=== PATIENT | male | born 1945 | race Caucasian/White ===

== ENCOUNTER → 2017-04-01 | Outpatient (CLI) | payer BC ==
[~2017-04-01] MED LIST: BAYER PO; SIMV40TA2 PO
[2017-04-01 09:53] LABS: ALT/SGPT 24 U/L (12-78); AST/SGOT 14 U/L (15-37); BLOOD UREA NITROGEN 18 mg/dl (7-18); BUN/CREATININE RATIO 16.3 (10-20); CALCIUM 8.8 mg/dl (8.5-10.1); CARBON DIOXIDE 29 mmol/L (21-32); CHLORIDE 109 mmol/L (98-107); CHOLESTEROL 172 mg/dl (0-200); GLUCOSE 111 mg/dl (70-99); POTASSIUM 4.6 mmol/L (3.5-5.1); SODIUM 144 mmol/L (136-145); TRIGLYCERIDES 180 mg/dl (0-150); VERY LOW DENSITY LIPOPROT CALC 36 mg/dl
[2017-04-01 09:55] LABS: CHOLESTEROL/HDL RATIO 3.9; HDL CHOLESTEROL 44 mg/dl; LDL CHOLESTEROL CALCULATED 92 mg/dl
[2017-04-01 11:01] LABS: ESTIMATED AVERAGE GLUCOSE 131 mg/dl; HA1C FLAG Normal (Normal)
== END | disposition home or self-care (01) ==
LOC: C.LAB1850 07:41
PROVIDERS: ATTEND Internal Medicine
DX: E78.5 Hyperlipidemia, unspecified (principal); R73.9 Hyperglycemia, unspecified; R97.20 Elevated prostate specific antigen [PSA]

== ENCOUNTER → 2017-10-19 | Outpatient (CLI) | payer BC ==
[2017-10-19 10:30] LABS: ESTIMATED AVERAGE GLUCOSE 134 mg/dl; HA1C FLAG Normal (Normal)
[2017-10-19 10:39] LABS: ALT/SGPT 23 U/L (12-78); AST/SGOT 14 U/L (15-37); BLOOD UREA NITROGEN 22 mg/dl (7-18); CALCIUM 8.9 mg/dl (8.5-10.1); CARBON DIOXIDE 26 mmol/L (21-32); CHLORIDE 108 mmol/L (98-107); CREATININE 1.11 mg/dl (0.60-1.40); GLUCOSE 111 mg/dl (70-99); POTASSIUM 4.3 mmol/L (3.5-5.1); SODIUM 138 mmol/L (136-145)
[2017-10-19 10:44] LABS: CHOLESTEROL 164 mg/dl (0-200); CHOLESTEROL/HDL RATIO 3.8; HDL CHOLESTEROL 43 mg/dl; LDL CHOLESTEROL CALCULATED 86 mg/dl; TRIGLYCERIDES 177 mg/dl (0-150); VERY LOW DENSITY LIPOPROT CALC 35 mg/dl
== END | disposition home or self-care (01) ==
LOC: C.LAB1850 07:12
PROVIDERS: ATTEND Urology
DX: R73.9 Hyperglycemia, unspecified (principal); N40.0 Benign prostatic hyperplasia without lower urinary tract symptoms; R97.20 Elevated prostate specific antigen [PSA]; E78.5 Hyperlipidemia, unspecified

== ENCOUNTER 2025-02-05 11:26 | Observation (INO) ==
--- OUTSIDE RECORDS SUMMARY | 2025-02-05 11:30 | External Medical Summary ---
Author Name Unknown Address Unknown Organization [id number]:[facility] [place] - [address] [facility] [address] Laboratory Report Ordering Provider Test Date Status MARK JAIMES 01/27/2025 13:05:00 Final Observation Date Value Abnormality Reference (Units ) Status WBC, Total 01/27/2025 13:05:00 4.95 4.00-10.80 (K/uL) Final RBC 01/27/2025 13:05:00 2.61 4.50-5.25 (M/uL) Final Hemoglobin 01/27/2025 13:05:00 8.0 Below low normal 14.0-16.8 (g/dL) Final HCT 01/27/2025 13:05:00 25.7 Below low normal 40.0-48.4 (%) Final MCV 01/27/2025 13:05:00 98.5 82.0-99.5 (fL) Final MCH 01/27/2025 13:05:00 30.7 27.0-34.0 (pg) Final MCHC 01/27/2025 13:05:00 31.1 32.0-36.0 (g/dL) Final RDW 01/27/2025 13:05:00 17.4 11.5-15.5 (%) Final Platelets 01/27/2025 13:05:00 232 140-400 (K/uL) Final MPV 01/27/2025 13:05:00 9.7 6.6-11.1 (fL) Final Nucleated erythrocytes/100 leukocytes [Ratio] in Blood by Automated count 01/27/2025 13:05:00 0 <=0 (/100 WBCs) Final Performing Location [facility] [place] - [address] [place] [address]
--- OUTSIDE RECORDS SUMMARY | 2025-02-05 11:30 | External Medical Summary | Summary of Care ---
Author Name Unknown Organization [facility] Address [address] [place] [place] [place] [address] Phone [phone] Care Team Providers Care Charging Car Operator Name Role Phone Trever Cho MD Primary Care Provider +1- [phone] Encounter Details Date Type Department Care Team (Late st Contact Info) Description 01/21/2025 Result Scan Unspecified Department Cooper Trevizo MD [address] [place] [phone] <No scans attached> Allergies No known active allergiesdocumented as of this encounter (statuses as of 01/24/2025) Medications Xgeva 120 MG/1.7ML Subcutaneous Solution (Denosumab) Start: 01/15/21 8:59:00 EST 1 Active Celecoxib 200 MG Oral Capsule (CeleBREX) TAKE 1 CAPSULE BY MOUTH EVERY DAY NEEDED FOR PAIN 0 Active amLODIPine Besylate 5 MG Oral Tablet (Norvasc) Take 1 Tablet by mouth in the morning. Active Aspirin 325 MG Oral Tablet Take 1 Tablet by mouth in the morning. Active Levothyroxine Sodium 25 MCG Oral Tablet (Levoxyl) Take 1 Tablet by mouth daily first thing in the morning. (at least 30 min prior to breakfast or other meds) Active oxyCODONE HCl 5 MG Oral Tablet (Oxy IR)Indications:Pr ostate cancer metastatic to bone (HCC),Cancer related pain Take 1 Tablet by mouth every 6 hours as needed for Pain, Severe. 50 Tablet 05/25/202 3 Active Additional Information Patient not taking.Reported on 06/16/2024 Megestrol Acetate 40 MG/ML Oral Suspension (Megace)Indicatio ns:Prostate cancer metastatic to bone (HCC),Weight loss, unintentional Take 10 mL by mouth in the morning. 480 mL 1 4 Active Erleada 60 MG Oral Tablet (Apalutamide)Olga cations:Encounter for medication refill,Prostate cancer metastatic to bone (HCC) TAKE 4 TABLETS BY MOUTH EVERY DAY 120 Tablet 6 5 Active Docusate Sodium 100 MG Oral Capsule (Colace) Take 1 Capsule by mouth in the morning and 1 Capsule before bedtime. Active Tamsulosin HCl 0.4 MG Oral Capsule (Flomax) Take 1 Capsule by mouth in the morning. Active Ascorbic Acid 500 MG Oral Tablet Chewable Take 1,500 mg by mouth in the morning. Active Vitamin D3 50 MCG (2000 UT) Oral Tablet Take 1 Tablet by mouth in the morning. Active Cyanocobalamin 1000 MCG Oral Capsule Take 1 Capsule by mouth in the morning. Active Pravastatin Sodium 20 MG Oral Tablet (Pravachol) Take 1 Tablet by mouth every evening. Active Vitamin B-1 100 MG Oral Tablet Take 1 Tablet by mouth in the morning. Active Vitamin E 400 UNIT Oral Tablet Take 1 Tablet by mouth in the morning. Active documented as of this encounter (statuses as of 01/24/2025) Active Problems Problem Noted Date Diagnosed Date Encounter for medication refill 09/06/2021 Prostate cancer metastatic to bone 09/17/2020 OBSTRUCTIVE CHRONIC BRONCHIT IS WITHOUT MENTION OF ACUTE EXACERBATION Hemorrhoids documented as of this encounter (statuses as of 01/24/2025) Immunizations Name Administration Dates Next Due COVID-19 mRNA, LNP-s, No Pre serve, 2-Dose Series (Moderna) 01/17/2021,12/21/2020 Seasonal Influenza, High Dos e, Trivalent, PF, IM (Fluzone HD) 11/03/2024,08/07/2022 Seasonal Influenza, Quadrivalent Hd (Fluzone Hd) 08/13/2021 documented as of this encounter Social History Tobacco Use Types Packs/Day Years Used Date Smoking Tobacco: Former Cigarettes Q uit: 11/16/1999 Smokeless Tobacco: Former Chew Alcohol Use Standard Drinks/Week Comments Yes 0 (1 standard drink = 0.6 oz pur e alcohol) 2 drinks/week Sex and Gender Information Value Date Recorded Sex Assigned at Not on file Legal Sex Male 7:13 AM EST Gender Identity Not on file Sexual Orientation Not on file documented as of this encounter Plan of Treatment Upcoming Encounters Date Type Department Care Team (Late st Contact Info) Description 01/27/2025 12:30 PM EDT Office Visit Hematology/Oncology [facility] [address] [facility] [place] [address] Cooper Trevizo MD [address] [facility] [place] [address] 02/16/2025 8:00 AM EDT Office Visit Hematology/Oncology [facility] [place] [address] [facility] [place] [address] Savita Watt CRNP [address] [facility] [place] [id number] Health Maintenance Due Date Last Done Comments Depression Screening 1957 Alpha-1 Antitrypsin 1962 DTap/Tdap Vaccines (1 - Tdap) 1963 *COPD SEVERITY VERIFIED BY PFT 09/01/2020 COVID-19 Vaccine (3 - Moderna risk series) 02/14/2021 01/17/2021, 12/21/2020 TSH 01/12/2026 01/12/2025, 04/0 12/2023, 03/17/2023, Additional history exists O2 ASSESSMENT COMPLETED IN PAST YEAR FOR COPD 01/19/2026 01/19/2025 Pneumococcal Vaccine: 50+ Years Completed 09/21/2015, 10/23/2011 Zoster Vaccines Completed 02/28/2019, 12/23/2018 Influenza Vaccine (FLU shot) Completed , 08/07/2022, 08/13/2021, Additional history exists HPV (Gardasil) Vaccine Aged Out No lo nger eligible based on patient's age to complete this topic Hepatitis B Vaccine Aged Out No longe r eligible based on patient's age to complete this topic MENINGOCOCCAL (MENACTRA/MENVEO) Aged Out No longer eligible based on patient's age to complete this topic Meningitis B Vaccine (Bexsero/Trumemba) Aged Out No longer eligible based on patient's age to complete this topic documented as of this encounter Medical Devices Not on filedocumented as of this encounter Procedures Procedure Name Priority Date/Time Associated Diagnosis Comments OUTSIDE LAB RESULTS 01/23/2025 OUTSIDE LAB RESULTS 01/21/2025 documented in this encounter Results * OUTSIDE LAB RESULTS (01/23/2025) 01/23/2025 us Cooper Trevizo MD LABORATORY Final Result * OUTSIDE LAB RESULTS (01/21/2025) 01/21/2025 us Cooper Trevizo MD LABORATORY Final Result documented in this encounter Care Teams Charging Car Operator Relationship Specialty Start Date End Date Pro, Trever Singletary MD [address] [place] [address] PCP - General Internal Medicine 12/17/20 documented as of this encounter
--- OUTSIDE RECORDS SUMMARY | 2025-02-05 11:30 | External Medical Summary | Summary of Care ---
Author Name Unknown Organization [facility] Address [address] [facility] [place] [address] Phone [phone] Care Team Providers Care Save All Operator Name Role Phone Trever Cho MD Primary Care Provider +1- [phone] Reason for Visit * Reason Comments Procedure BMBX Encounter Details Date Type Department Care Team (Late st Contact Info) Description 01/27/2025 12:30 PM EDT Office Visit Hematology/Oncology [facility] [place] [address] [facility] [place] [phone] Cooper Trevizo MD [address] [facility] [place] [address] Prostate cancer metastatic to bone (HCC)*; Symptomatic anemia Allergies No known active allergiesdocumented as of this encounter (statuses as of 01/28/2025) Medications Xgeva 120 MG/1.7ML Subcutaneous Solution (Denosumab) [...] as needed for Pain, Severe. 50 Tablet 3 Active Additional Information Patient not taking.Reported on 01/27/2025 Megestrol Acetate 40 MG/ML Oral Suspension (Megace)Indicatio [...] as of this encounter (statuses as of 01/28/2025) Active Problems Problem Noted Date Diagnosed Date Encounter for medication refill 09/06/2021 Prostate cancer metastatic to bone 09/17/2020 OBSTRUCTIVE CHRONIC BRONCHIT IS WITHOUT MENTION OF ACUTE EXACERBATION Hemorrhoids documented as of this encounter (statuses as of 01/28/2025) Immunizations Name Administration Dates Next Due COVID-19 [...] on file documented as of this encounter Last Filed Vital Signs Vital Sign Reading Time Taken Comments Blood Pressure 116/74 01/27/2025 12:32 PM EDT Pulse 97 01/27/2025 12:32 PM EDT Temperature 36.3 C (97.3 F) 01/27/2025 12:32 PM E DT Respiratory Rate 16 01/27/2025 12:32 PM EDT Oxygen Saturation 98% 01/27/2025 12:32 PM EDT Inhaled Oxygen Concentration - - Weight 71 kg (156 lb 8 oz) 01/27/2025 12:32 PM E DT Height - - Body Mass Index 23.8 10/05/2023 10:00 AM EST documented in this encounter Patient Instructions * Patient Instructions* Cooper Trevizo MD - 01/27/2025 1:04 PM EDT Patient Instructions for Bone Marrow Aspiration/Biopsy A pressure dressing was applied to your bone marrow aspiration/biopsy site. This should be checked when you return home to look for any bleeding. If the dressing is wet with blood apply pressure to the site for ten minutes and then replace the dressing with a new bandage. If the bleeding doesn't stop, then call the doctor's office immediately or go to the local emergency room. If the dressing is dry when you check it, please remove the dressing prior to going to bed. You may want to cover the site with a bandaid for one or two days until the wound is healed. Should you notice any redness or warmth around the wound, please notify the doctor's office immediately. You may use Tylenol as directed on the bottle for any discomfort that occurs after you return home. Cooper Trevizo MD documented in this encounter Progress Notes * Cooper Trevizo MD - 01/27/2025 1:05 PM EDT PROCEDURE: Bone Marrow Biopsy and Aspiration INDICATION: Evaluation of anemia in a known case of metastatic prostate cancer with bone metastasis. INFORMED CONSENT: Obtain and in chart. Risks, benefits, and complications discussed with patient prior to procedure. ANESTHESIA: 1% Lidocaine - Local SUMMARY OF PROCEDURE: Patient place in left lateral decubitus position and posterior superior iliacspine palpated and marked. Area clean and draped in the usual fashion using sterile technique with Betadine. The skin, superficial and deep tissues, and periosteum anesthetized with 1% lidocaine in the usual fashion. Small skin incision made and bone marrow needle placed through this opening. Bone marrow needle advanced into bone with some difficulty but it was a dry tap. Needle advanced further and biopsy specimen taken in the usual fashion without difficulty. Lab assisted. No bleeding noted following the procedure. SPECIMENS: Bone marrow biopsy sent to the laboratory. ESTIMATED BLOOD LOSS: Blood loss COMPLICATIONS: NONE DISPOSITION: As above, patient to remain in Heme/Onc Clinic for approx 30 minutes prior to going home. May remove pressure dressing tomorrow AM. Will inform them regarding the bone marrow findings * Edith Rodrigues LPN - 01/27/2025 12:27 PM EDT Patient identifed by name and birthdate Do you have any concerns about pain management for today's visit? No Living Will or Advance Directive for Health Care as noted on the problem list. [employer] is a way you can talk to your provider on line through e-mail. Would you like to sign up? I can activate it for you? ALREADY ACTIVE Filed Vitals: 01/27/25 1232 BP: 116/74 Pulse: 97 Resp: 16 Temp: 36.3 C (97.3 F) TempSrc: Tympanic SpO2: 98% Weight: 71 kg (156 lb 8 oz) Patient was instructed to not get up on the exam table/exam chair until directed and assisted by their provider; patient is to remain seated in the chair/ wheelchair/ exam table/ exam chair for fall prevention and safety reasons. Patient is aware to have assistance to step down off exam table/exam chair with personnel. Patient voiced full comprehension of instructions. documented in this encounter Plan of Treatment Upcoming Encounters Date Type Department Care Team (Late st Contact Info) Description 02/16/2025 8:00 AM EDT Office Visit [facility] [place] [facility] [address] Savita Watt CRNP [address] [address] Pending Results Name Type Priority Associated Diagnoses Date /Time SURGICAL PATHOLOGY Pathology Routine Prostate cancer metastatic to bone (HCC) Symptomatic anemia 01/27/2025 1:00 PM EDT Scheduled Orders Name Type Priority Associated Diagnoses Orde r Schedule BONE MARROW BIOPSY Procedures Routine Prostate cancer metastatic to bone (HCC) Symptomatic anemia Ordered: 01/27/2025 Health Maintenance Due Date Last Done Comments Depression Screening 1957 Alpha-1 Antitrypsin 1962 DTap/Tdap Vaccines (1 - Tdap) 1963 *COPD SEVERITY VERIFIED BY PFT 09/01/2020 COVID-19 Vaccine (3 - Moderna risk series) 02/14/2021 01/17/2021, 12/21/2020 TSH 01/12/2026 01/12/2025, 04/0 12/2023, 03/17/2023, Additional history exists O2 ASSESSMENT COMPLETED IN PAST YEAR FOR COPD 01/27/2026 01/27/2025 Pneumococcal Vaccine: 50+ Years Completed 09/21/2015, 10/23/2011 [...] Procedure Name Priority Date/Time Associated Diagnosis Comments DIFFERENTIAL, AUTOMATED Routine 01/27/2025 1:05 PM EDT Prostate cancer metastatic to bone (HCC) Symptomatic anemia CBC Routine 01/27/2025 1:05 PM EDT Prostate cancer metastatic to bone (HCC) Symptomatic anemia CBC Routine 01/27/2025 1:05 PM EDT Prostate cancer metastatic to bone (HCC) Symptomatic anemia documented in this encounter Results * (ABNORMAL) DIFFERENTIAL, AUTOMATED (01/27/2025 1:05 PM EDT) WBC 4.95 4.00 - 10.80 K/uL 01/27/2025 5:42 PM EDT [facility] Neutrophils % 64.5 40.0 - 75.0 % 01/27/2025 5:42 PM EDT [facility] Lymphocytes % 19.2 18.0 - 42.0 % 01/27/2025 5:42 PM EDT [facility] Monocytes % 9.7 1.0 - 11.0 % 01/27/2025 5:42 PM EDT [facility] Eosinophils % 2.0 0.0 - 6.0 % 01/27/2025 5:42 PM EDT [facility] Basophils % 0.2 0.0 - 2.0 % 01/27/2025 5:42 PM EDT [facility] Immature Granulocytes % 4.4(H) 0.0 - 2.0 % 01/27/2025 5:42 PM EDT [facility] Absolute Neutrophils 3.19 1.80 - 7.70 K/uL 01/27/2025 5:42 PM EDT [facility] Absolute Lymphocytes 0.95(L) 1.00 - 4.80 K/ul 01/27/2025 5:42 PM EDT [facility] Absolute Monocytes 0.48 0.00 - 1.10 K/uL 01/27/2025 5:42 PM EDT [facility] Absolute Eosinophils 0.10 0.00 - 0.70 K/uL 01/27/2025 5:42 PM EDT [facility] Absolute Basophils 0.01 0.00 - 0.20 K/uL 01/27/2025 5:42 PM EDT [facility] Absolute Immature Granulocytes 0.22(H) 0.00 - 0.20 K/uL 01/27/2025 5:42 PM EDT [facility] Blood Venous blood specimen / Unknown Venipuncture / Unknown 01/27/2025 1:05 PM EDT 01/27/2025 1:09 PM EDT us Cooper Trevizo MD LAB BLOOD ORDERABLES Final Res ult [facility] [address] [place] [address] * (ABNORMAL) CBC (01/27/2025 1:05 PM EDT) WBC 4.95 4.00 - 10.80 K/uL 01/27/2025 5:42 PM EDT [facility] RBC 2.61 4.50 - 5.25 M/uL 01/27/2025 5:42 PM EDT [facility] HGB 8.0(L) 14.0 - 16.8 g/dL 01/27/2025 5:42 PM EDT [facility] HCT 25.7(L) 40.0 - 48.4 % 01/27/2025 5:42 PM EDT [facility] MCV 98.5 82.0 - 99.5 fL 01/27/2025 5:42 PM EDT [facility] MCH 30.7 27.0 - 34.0 pg 01/27/2025 5:42 PM EDT [facility] MCHC 31.1 32.0 - 36.0 g/dL 01/27/2025 5:42 PM EDT [facility] RDW 17.4 11.5 - 15.5 % 01/27/2025 5:42 PM EDT [facility] PLT 232 140 - 400 K/uL 01/27/2025 5:42 PM EDT [facility] MPV 9.7 6.6 - 11.1 fL 01/27/2025 5:42 PM EDT [facility] nRBCs 0 <=0 /100 WBCs 01/27/2025 5:42 PM EDT [facility] Blood Venous blood specimen / Unknown Venipuncture / Unknown 01/27/2025 1:05 PM EDT 01/27/2025 1:09 PM EDT us Cooper Trevizo MD LAB BLOOD ORDERABLES Final Res ult [facility] [address], [place] [id number] documented in this encounter Visit Diagnoses Diagnosis Prostate cancer metastatic to bone (HCC)- Primary Symptomatic anemia documented in this encounter Care Teams Save All Operator Relationship Specialty Start Date End Date Pro, Trever Singletary MD [address] [place] [address] PCP - General Internal Medicine 12/17/20 documented as of this encounter
--- OUTSIDE RECORDS SUMMARY | 2025-02-05 11:30 | External Medical Summary | Summary of Care ---
Author Name Unknown Organization [facility] Address [address] [facility] [place] [address] Phone [phone] Care Team Providers Care Manufacturing Engineering Technologist Name Role Phone Trever Cho MD Primary Care Provider +1- [phone] Reason for Visit * Reason Comments Procedure BMBX Encounter Details Date Type Department Care Team (Late st Contact Info) Description 01/27/2025 12:30 PM EDT Office Visit Hematology/Oncology [facility] [place] [address] [facility] [place] [phone] Cooper Trevizo MD [address] [facility] [place] [address] Prostate cancer metastatic to bone (HCC)*; Symptomatic anemia Allergies No known active allergiesdocumented as of this encounter (statuses as of 01/27/2025) Medications Xgeva 120 MG/1.7ML Subcutaneous Solution (Denosumab) [...] as of this encounter (statuses as of 01/27/2025) Active Problems Problem Noted Date Diagnosed Date Encounter for medication refill 09/06/2021 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 [employer] is a way you can talk to [...] AM EDT Office Visit [facility] [place] [facility] [address] Savita Watt CRNP [address] [place] [address] Pending Results Name Type Priority Associated Diagnoses [...] Final Res ult [facility] [address] [place] [address] * (ABNORMAL) CBC (01/27/2025 1:05 [...] Final Res ult [facility] [address], [place] [id number] documented in this encounter Visit Diagnoses Diagnosis Prostate cancer metastatic to bone (HCC)- Primary Symptomatic anemia documented in this encounter Care Teams Manufacturing Engineering Technologist Relationship Specialty Start Date End Date Pro, Trever Singletary MD [address] [place] [address] PCP - General Internal Medicine 12/17/20 documented as of this encounter
--- OUTSIDE RECORDS SUMMARY | 2025-02-05 11:30 | External Medical Summary | Summary of Care ---
Author Name Unknown Organization [facility] Address [address] [facility] [place] [address] Phone [phone] Care Team Providers Care Rework Machine Operator Name Role Phone Trever Cho MD Primary Care Provider +1- [phone] Reason for Visit * Reason Comments Procedure BMBX Encounter Details Date Type Department Care Team (Late st Contact Info) Description 01/27/2025 12:30 PM EDT Office Visit Hematology/Oncology [facility] [place] [address] [facility] [place] [phone] Cooper Trevizo MD [address] [facility] [place] [address] Prostate cancer metastatic to bone (HCC)*; Symptomatic anemia Allergies No known active allergiesdocumented as of this encounter (statuses as of 01/30/2025) Medications Xgeva 120 MG/1.7ML Subcutaneous Solution (Denosumab) [...] as of this encounter (statuses as of 01/30/2025) Active Problems Problem Noted Date Diagnosed Date Encounter for medication refill 09/06/2021 Prostate cancer metastatic to bone 09/17/2020 OBSTRUCTIVE CHRONIC BRONCHIT IS WITHOUT MENTION OF ACUTE EXACERBATION Hemorrhoids documented as of this encounter (statuses as of 01/30/2025) Immunizations Name Administration Dates Next Due COVID-19 [...] Care as noted on the problem list. [employer] is a way you can talk to [...] comprehension of instructions. documented in this encounter Miscellaneous Notes * Addendum Note - Abdi Cruz TECH - 01/30/2025 8:05 AM EDTAddended by: ABDI CRUZ on: 01/30/2025 08:05 AM Modules accepted: Orders documented in this encounter Plan of Treatment Upcoming Encounters Date Type Department Care Team (Late st Contact Info) Description 02/16/2025 8:00 AM EDT Office Visit Hematology/Oncology [facility] [place] [facility] [address] Savita Watt CRNP [address] [facility] [place] [address] Pending Results Name Type Priority Associated Diagnoses Date /Time SURGICAL PATHOLOGY Pathology Routine Prostate cancer metastatic to bone (HCC) Symptomatic anemia 01/27/2025 1:00 PM EDT BONE MARROW PANEL Lab Routine Prostate cancer metastatic to bone (HCC) 01/27/2025 1:00 PM EDT BONE MARROW WITH REFLEX TESTING Pathology Routine Prostate cancer metastatic to bone (HCC) 01/27/2025 1:00 PM EDT Scheduled Orders Name Type Priority Associated Diagnoses Orde r Schedule BONE MARROW BIOPSY Procedures Routine Prostate cancer metastatic to bone (HCC) Symptomatic anemia Ordered: 01/27/2025 CBC Lab Routine Prostate cancer metastatic to bone (HCC) Ordered: 01/30/2025 DIFFERENTIAL, AUTOMATED Lab Routine Prostate cancer metastatic to bone (HCC) Ordered: 01/30/2025 Health Maintenance Due Date Last Done Comments [...] Final Res ult [facility] [address] [place] [address] * (ABNORMAL) CBC (01/27/2025 1:05 PM EDT) [facility] WBC 4.95 4.00 - 10.80 K/uL 01/27/2025 [...] Final Res ult [facility] [address] [place] [address] documented in this encounter Visit Diagnoses Diagnosis Prostate cancer metastatic to bone (HCC)- Primary Symptomatic anemia documented in this encounter Care Teams Rework Machine Operator Relationship Specialty Start Date End Date Pro, Trever Singletary MD [address] [place] [address] PCP - General Internal Medicine 12/17/20 documented as of this encounter
--- OUTSIDE RECORDS SUMMARY | 2025-02-05 11:30 | External Medical Summary | Summary of Care ---
Author Name Unknown Organization [facility] Address [address] [facility] [place] [address] Phone [phone] Care Team Providers Care Solar Sales Name Role Phone Trever Cho MD Primary Care Provider +1- [phone] Reason for Visit * Reason Onset Date Comments Advice 01/23/2025 Santhosh Appointment 01/23/2025 Encounter Details Date Type Department Care Team (Late st Contact Info) Description 01/23/2025 Telephone Hematology/Oncology [facility] [place] 200 [facility] [place] [phone] Cooper Lara MD 200 [place] [address] Advice (Santhosh ); Appointment Allergies No known active allergiesdocumented as of [...] on file documented as of this encounter Miscellaneous Notes * Telephone Encounter - Genaro Ortega OSA - 01/24/2025 9:30 AM EDT Scheduled as requested * Telephone Encounter - Mike Cage RN - 01/24/2025 8:21 AM EDT Called patients daughter this morning after speaking with Dr. Lara. She is driving in from [place] Thursday. Dr. Lara - [facility] , adding patient on for 12:30 on Thursday. Scheduling- Please add patient on for 30 min follow up with Dr. Lara at 12:30 on Saturday 01/27 (ok to overbook) "BMBX" -- patients daughter is aware. * Telephone Encounter - Edith Rodrigues LPN - 01/23/2025 2:46 PM EDT Spoke with patient, informed her that Dr. Lara is out of the office today, but will be returning to the office tomorrow. We will contact her once we have discussed her request with Dr. Lara tomorrow morning. She verbalized understanding. She states that she will be coming up to be with the patient this weekend and would be able to care for him after the procedure if it can be done on Thursday. She verbalized understanding and denies any other questions at this time. * Telephone Encounter - Mike Cage RN - 01/23/2025 2:35 PM EDT Cresencio- please call patients daughter back and advise that Dr. Lara is not in the office today, I plan to discuss this with him tomorrow morning and will call her. * Telephone Encounter - Clayton Abreu OSA - 01/23/2025 2:10 PM EDT Patients Daughter Juli called back in just checking on if she could have the patient be put on forFriday. She states it is important for her to know as soon as possible because her travel plans do rely on the response. Please call her back at [phone] * Telephone Encounter - Farheen Montes De Oca OSA - 01/23/2025 10:39 AM EDT Patient daughter Juli calling states they were told to call when they [place] schedule a [place] marrow bx with dr lara? shes asking to be put on thursday for him documented in this encounter Plan of Treatment Upcoming Encounters Date Type Department Care Team (Late st Contact Info) Description 01/27/2025 12:30 PM EDT Office Visit Hematology/Oncology [facility] [place] [address] [place] [phone] Cooper Lara MD 200 [facility] [place] [address] 02/16/2025 8:00 AM EDT Office Visit Hematology/Oncology [facility] [place] [address] [place] [phone] Savita Sloan CRNP [facility] [place] [address] Health Maintenance Due Date Last Done Comments [...] Not on filedocumented as of this encounter Care Teams Solar Sales Relationship Specialty Start Date End Date Pro, Trever Singletary MD [address] [facility], [place] [address] PCP - General Internal Medicine 12/17/20 documented as of this encounter
--- OUTSIDE RECORDS SUMMARY | 2025-02-05 11:30 | External Medical Summary | Summary of Care ---
Author Name Unknown Organization [facility] Address [address] [facility] [place] [address] Phone [phone] Care Team Providers Care Senior Engineering Tech Name Role Phone Trever Cho MD Primary Care Provider +1- [phone] Reason for Visit * Reason Comments Procedure BMBX Encounter Details Date Type Department Care Team (Late st Contact Info) Description 01/27/2025 12:30 PM EDT Office Visit Hematology/Oncology [facility] [place] [address] [facility] [place] [phone] Cooper Trevizo MD 200 [facility] [place] [address] Prostate cancer metastatic to bone (HCC)*; Symptomatic [...] Care as noted on the problem list. [facility] is a way you can talk to [...] AM EDT Office Visit Hematology/Oncology [facility] [place] [facility] [phone] Savita Watt CRNP [address] [place] [address] Pending Results Name Type Priority Associated Diagnoses [...] Final Res ult [facility] [address] [place] [address] * (ABNORMAL) CBC (01/27/2025 1:05 [...] Final Res ult [facility] [address] [place], [place] [id number] documented in this encounter Visit Diagnoses Diagnosis Prostate cancer metastatic to bone (HCC)- Primary Symptomatic anemia documented in this encounter Care Teams Senior Engineering Tech Relationship Specialty Start Date End Date Pro, Trever Singletary MD [address] [place] [address] PCP - General Internal Medicine 12/17/20 documented as of this encounter
--- OUTSIDE RECORDS SUMMARY | 2025-02-05 11:30 | External Medical Summary | Summary of Care ---
Author Name Unknown Organization [facility] Address [address] [facility] [place] [address] Phone [phone] Care Team Providers Care Breast Worker Name Role Phone Trever Cho MD Primary Care Provider +1- [phone] Reason for Visit * Reason Comments Procedure BMBX Encounter Details Date Type Department Care Team (Late st Contact Info) Description 01/27/2025 12:30 PM EDT Office Visit Hematology/Oncology [facility] [place] 200 [facility] [place] [phone] Cooper Trevizo MD 200 [facility] [place] [address] Prostate cancer metastatic to bone (HCC)*; Symptomatic [...] Care as noted on the problem list. [facility] is a way you can talk to [...] 02/16/2025 8:00 AM EDT Office Visit Hematology/Oncology [facility] [place] 200 [facility] [phone] Savita Watt CRNP 400 [facility] [place] [address] Pending Results Name [...] Final Res ult [facility] [address] [place] [address] * (ABNORMAL) CBC (01/27/2025 1:05 PM EDT) [facility] WBC 4.95 4.00 - 10.80 K/uL 01/27/2025 [...] Final Res ult [facility] [address] [place] [address] documented in this encounter Visit Diagnoses Diagnosis Prostate cancer metastatic to bone (HCC)- Primary Symptomatic anemia documented in this encounter Care Teams Breast Worker Relationship Specialty Start Date End Date Pro, Trever Singletary MD [address] [place] [address] PCP - General Internal Medicine 12/17/20 documented as of this encounter
--- OUTSIDE RECORDS SUMMARY | 2025-02-05 11:30 | External Medical Summary ---
Author Name Unknown Address Unknown Organization K01:LABORATORY [facility] - [address] [facility] [place] [address] Laboratory Report Ordering Provider Test Date Status MARK JAIMES 01/27/2025 13:05:00 Final Observation Date Value Abnormality Reference (Units ) Status SYNC LEUKOCYTES IN BLOOD BY AUTOMATED COUNT 01/27/2025 13:05:00 4.95 4.00-10.80 (K/uL) Final Segs 01/27/2025 13:05:00 64.5 40.0-75.0 (%) Final Lymphs % 01/27/2025 13:05:00 19.2 18.0-42.0 (%) Final Monos 01/27/2025 13:05:00 9.7 1.0-11.0 (%) Final Eosinophils 01/27/2025 13:05:00 2.0 0.0-6.0 (%) Final Basos 01/27/2025 13:05:00 0.2 0.0-2.0 (%) Final Immature Granulocyte, Percent 01/27/2025 13:05:00 4.4 Above high normal 0.0-2.0 (%) Final Absolute Segs 01/27/2025 13:05:00 3.19 1.80-7.70 (K/uL) Final Lymphs, absolute 01/27/2025 13:05:00 0.95 Below low normal 1.00-4.80 (K/ul) Final Monos, Abs 01/27/2025 13:05:00 0.48 0.00-1.10 (K/uL) Final Eos, Abs 01/27/2025 13:05:00 0.10 0.00-0.70 (K/uL) Final Basos, Abs 01/27/2025 13:05:00 0.01 0.00-0.20 (K/uL) Final Immature Granulocytes, Number 01/27/2025 13:05:00 0.22 Above high normal 0.00-0.20 (K/uL) Final Performing Location LABORATORY [facility] - [address] [place] [address]
--- OUTSIDE RECORDS SUMMARY | 2025-02-05 11:30 | External Medical Summary | Summary of Care ---
Author Name Unknown Organization [facility] Address [address] [facility] [place] [address] Phone [phone] Care Team Providers Care Heavy Equipment Sales Manager Name Role Phone Trever Cho MD Primary Care Provider +1- [phone] Reason for Visit * Reason Comments Procedure BMBX Encounter Details Date Type Department Care Team (Late st Contact Info) Description 01/27/2025 12:30 PM EDT Office Visit Hematology/Oncology [facility] [place] [address] [facility] [place] [phone] Cooper Trevizo MD [address] [facility] [place] [address] Prostate cancer metastatic to bone (HCC)*; Symptomatic [...] Care as noted on the problem list. [facility] is a way you can talk to [...] AM EDT Office Visit Hematology/Oncology [facility] [place] [facility] [address] Savita Watt CRNP [address] [place] [address] Pending Results Name Type Priority Associated Diagnoses [...] Final Res ult [facility] [address] [place] [address] * (ABNORMAL) CBC (01/27/2025 1:05 [...] Final Res ult [facility] [address] [place], [place] [id number] documented in this encounter Visit Diagnoses Diagnosis Prostate cancer metastatic to bone (HCC)- Primary Symptomatic anemia documented in this encounter Care Teams Heavy Equipment Sales Manager Relationship Specialty Start Date End Date Pro, Trever Singletary MD [address] [place] [address] PCP - General Internal Medicine 12/17/20 documented as of this encounter
--- OUTSIDE RECORDS SUMMARY | 2025-02-05 11:31 | External Medical Summary | Summary of Care ---
Author Name Unknown Organization [facility] Address [address] [facility] [place] [address] Phone [phone] Care Team Providers Care Bereavement Coordinator Name Role Phone Trever Cho MD Primary Care Provider +1- [phone] Reason for Visit * Reason Onset Date Comments Advice 01/23/2025 Santhosh Appointment 01/23/2025 Encounter Details Date Type Department Care Team (Late st Contact Info) Description 01/23/2025 Telephone Hematology/Oncology [facility] [place] 200 [facility] [place] [phone] Cooper Lara MD 200 [facility] [place] [address] Advice (Santhosh ); Appointment Allergies No known active allergiesdocumented as of this encounter (statuses as of 01/23/2025) Medications Xgeva 120 MG/1.7ML Subcutaneous Solution (Denosumab) [...] as of this encounter (statuses as of 01/23/2025) Active Problems Problem Noted Date Diagnosed Date Encounter for medication refill 09/06/2021 Prostate cancer metastatic to bone 09/17/2020 OBSTRUCTIVE CHRONIC BRONCHIT IS WITHOUT MENTION OF ACUTE EXACERBATION Hemorrhoids documented as of this encounter (statuses as of 01/23/2025) Immunizations Name Administration Dates Next Due COVID-19 [...] encounter Miscellaneous Notes * Telephone Encounter - Edith Rodrigues LPN [...] OSA - 01/23/2025 2:10 PM EDT Patients Krista Bustos called back in just checking on if she could have the patient be put on forFriday. She states it is important for her to know as soon as possible because her travel plans do rely on the response. Please call her back at [phone] * Telephone Encounter - Farheen Montes De [...] AM EDT Office Visit Hematology/Oncology [facility] [place] [address] [facility] [address] Savita Watt CRNP 400 [facility] [place] [address] Health Maintenance Due Date Last Done Comments [...] filedocumented as of this encounter Care Teams Bereavement Coordinator Relationship Specialty Start Date End Date Pro, Trever Singletary MD [address] [place] [address] PCP - General Internal Medicine 12/17/20 documented as of this encounter
--- OUTSIDE RECORDS SUMMARY | 2025-02-05 11:31 | External Medical Summary | Summary of Care ---
Author Name Unknown Organization [facility] Address [address] [facility] [place] [address] Phone [phone] Care Team Providers Care Adjunct Lecturer Name Role Phone Trever Cho MD Primary Care Provider +1- [phone] Reason for Visit * Reason Onset Date Comments Advice 01/23/2025 Santhosh Appointment 01/23/2025 Encounter Details Date Type Department Care Team (Late st Contact Info) Description 01/23/2025 Telephone Hematology/Oncology [facility] [place] 200 [facility] [place] [phone] Cooper Lara MD 200 [place] [address] Advice (Santhosh ); Appointment Allergies No known [...] - 01/23/2025 2:10 PM EDT Patients Krista uBstos called back in just checking on if she could have the patient be put on forFriday. She states it is important for her to know as soon as possible because her travel plans do rely on the response. Please call her back at [phone] * Telephone Encounter - Farheen Montes De [...] AM EDT Office Visit Hematology/Oncology [facility] [place] [address] [facility] [address] Savita Watt CRNP 400 [facility] [place] [address] Health Maintenance Due Date [...] filedocumented as of this encounter Care Teams Adjunct Lecturer Relationship Specialty Start Date End Date Pro, Trever Singletary MD [address] [place] [address] PCP - General Internal Medicine 12/17/20 documented as of this encounter
--- OUTSIDE RECORDS SUMMARY | 2025-02-05 11:31 | External Medical Summary | Summary of Care ---
Author Name Unknown Organization [facility] Address [address] [facility] [place] [address] Phone [phone] Care Team Providers Care Reconciliation Accountant Name Role Phone Trever Cho MD Primary Care Provider +1- [phone] Reason for Visit * Reason Onset Date Comments Advice 01/23/2025 Santhosh Appointment 01/23/2025 Encounter Details Date Type Department Care Team (Late st Contact Info) Description 01/23/2025 Telephone Hematology/Oncology [facility] [place] 200 [place] [phone] Cooper Lara MD 200 [place] [address] Advice (Santhosh ); Appointment Allergies No known [...] the response. Please call her back at [phone] * Telephone Encounter - Farheen Montes De [...] 8:00 AM EDT Office Visit Hematology/Oncology [facility] [place] 200 [facility] [address] Savita Watt CRNP 400 [facility] [place] [address] Health Maintenance Due [...] filedocumented as of this encounter Care Teams Reconciliation Accountant Relationship Specialty Start Date End Date Pro, Trever Singletary MD [address] [place] [address] PCP - General Internal Medicine 12/17/20 documented as of this encounter
--- OUTSIDE RECORDS SUMMARY | 2025-02-05 11:31 | External Medical Summary | Summary of Care ---
Author Name Unknown Organization [facility] Address [address] [facility] [place] [address] Phone [phone] Care Team Providers Care Brewery Pumper Name Role Phone Trever Cho MD Primary Care Provider +1- [phone] Reason for Visit * Reason Onset Date Comments Advice 01/23/2025 Santhosh Appointment 01/23/2025 Encounter Details Date Type Department Care Team (Late st Contact Info) Description 01/23/2025 Telephone Hematology/Oncology [facility] [place] 200 [facility] [place] [phone] Cooper Lara MD 200 [place] [address] Advice (Santhosh ); Appointment Allergies No known [...] the response. Please call her back at [phone] * Telephone Encounter - Farheen Montes De [...] AM EDT Office Visit Hematology/Oncology [facility] [place] 200 [facility] [address] Savita Watt CRNP 400 [facility] [place] [address] Health Maintenance Due Date [...] filedocumented as of this encounter Care Teams Brewery Pumper Relationship Specialty Start Date End Date Pro, Trever Singletary MD [address] [place] [address] PCP - General Internal Medicine 12/17/20 documented as of this encounter
--- OUTSIDE RECORDS SUMMARY | 2025-02-05 11:31 | External Medical Summary | Summary of Care ---
Author Name Unknown Organization [facility] Address [address] [facility] [place] [address] Phone [phone] Care Team Providers Care Ignition Mechanic Name Role Phone Trever Cho MD Primary Care Provider +1- [phone] Reason for Visit * Reason Onset Date Comments Advice 01/23/2025 Santhosh Appointment 01/23/2025 Encounter Details Date Type Department Care Team (Late st Contact Info) Description 01/23/2025 Telephone Hematology/Oncology [facility] [place] 200 [facility] [phone] Cooper Lara MD 200 [place] [address] Advice (Santhosh ); Appointment Allergies No known [...] encounter Miscellaneous Notes * Telephone Encounter - Mike Cage RN - 01/24/2025 8:21 AM EDT Called patients daughter this morning after speaking with Dr. Lara. She is driving in from [place] [employer] Thursday. Dr. Lara - [facility] , adding patient on for 12:30 on [...] the response. Please call her back at [phone] * Telephone Encounter - Farheen Montes De Oca OSA - 01/23/2025 10:39 AM EDT Patient daughter Juli calling states they were told to call [facility] bx with dr lara? shes asking to be put on thursday for him documented in this encounter Plan of Treatment Upcoming Encounters Date Type Department Care Team (Late st Contact Info) Description 02/16/2025 8:00 AM EDT Office Visit Hematology/Oncology [facility] [place] 200 [facility] [address] Savita Watt CRNP [address] [place] [address] Health Maintenance Due Date Last Done [...] filedocumented as of this encounter Care Teams Ignition Mechanic Relationship Specialty Start Date End Date Pro, Trever Singletary MD [address] [place] [address] PCP - General Internal Medicine 12/17/20 documented as of this encounter
--- NOTE | 2025-02-05 11:59 | XRay Report ---
XR chest 1V portable CLINICAL HISTORY: Right lower chest pain. COMPARISON STUDY: Chest radiograph November 04, 2010. PET/CT June 01, 2024. FINDINGS: Extensive skeletal sclerotic lesions were shown on PET/CT of June 01, 2024. Lung volumes ar e diminished. There is no pneumothorax or pleural effusion. Mild cardiomegaly is unchanged. Right hil ar prominence is likely due to pulmonary vessels. Pulmonary vascular congestion without overt pulmona ry edema. IMPRESSION: 1. Cardiomegaly with pulmonary vascular congestion. 2. Right hilar prominence likely related to pulmonary vessels. 3. Redemonstration of extensive sclerotic skeletal metastases. ACT 112: Negative or not required by law. Electronically signed by: Juan Miguel Gonzalez M.D. 02/05/2025 11:56 AM
[2025-02-05 12:10] LABS: Basophils # (auto) 0.01 K/uL (0.00-0.20); Basophils % (auto) 0.2 %; Eosinophils # (auto) 0.08 K/uL (0.00-0.50); Eosinophils % (auto) 1.6 %; Hematocrit (blood only) 24.2 % (42.0-52.0); Hemoglobin 7.6 g/dl (14.0-18.0); Immature Granulocytes # (auto) 0.21 K/uL (0.01-0.20); Immature Granulocytes % (auto) 4.1 %; Lymphocytes # (auto) 0.71 K/uL (1.20-3.40); Mean Corpuscular Hemoglobin 29.9 pg (25.0-34.0); Mean Corpuscular Hgb Conc 31.4 g/dL (32.0-36.0); Mean Corpuscular Volume 95.3 fL (80.0-100.0); Mean Platelet Volume 9.4 fL (9.4-12.4); Monocytes # (auto) 0.39 K/uL (0.11-0.59); Monocytes % (auto) 7.7 %; Neutrophils # (auto) 3.67 K/uL (1.40-6.50); Neutrophils % (auto) 72.4 %; Platelet Count 236 K/uL (130-400); RDW Coefficient of Variation 17.2 % (11.5-14.5); RDW Standard Deviation 59.5 fL (36.4-46.3); Red Blood Count 2.54 M/uL (4.70-6.10); White Blood Count 5.07 K/ul (4.8-10.8)
[2025-02-05 12:33] LABS: Albumin Level 3.5 gm/dl (3.4-5.0); Anisocytosis Present; BUN Creatinine Ratio 44.1 (10-20); Bilirubin,Total 0.3 mg/dl (0.2-1.0); Calcium 9.1 mg/dl (8.6-10.3); Creatinine Clr Calc Pharmacy 90.9 ml/min; Globulin 3.5 gm/dl (2.5-4.0); Potassium 4.4 mmol/L (3.5-5.1)
[2025-02-05 12:35] LABS: Appearance Urine Clear (Clear); Bacteria Urine Automated None Seen (None Seen); Bilirubin Urine Negative (Negative); Blood Urine Negative (Negative); Cast Urine Automated 0-2 /lpf (0-2); Color Urine Yellow; Epithelial Cell Urine Auto 0-2 /hpf (0-2); Glucose Urine UA Negative (Negative); Ketones Urine Negative (Negative); Leukocyte Esterase Urine Negative (Negative); Nitrite Urine Negative (Negative); Protein Urine Trace (Negative); RBC Urine Automated 0-2 /hpf (0-2); Specific Gravity Urine 1.022 (1.000-1.030); Urobilinogen Urine Negative (Negative); WBC Urine Automated 0-5 /hpf (0-5)
[2025-02-05 12:37] LABS: Prothrombin Time 11.2 Seconds (9.0-12.0)
[2025-02-05 12:39] LABS: Troponin I High Sensitivity 5.1 pg/ml (0-20)
[2025-02-05] MEDS: OPTIRAY 320 100ml IV ONE (12:56)
--- NOTE | 2025-02-05 13:30 | Emergency Department Note ---
Impression & Plan Right sided abdominal pain, Anemia ED Provider Note HISTORY OF PRESENT ILLNESS: Patient is an 79-year-old male presenting with right upper quadrant abdominal pain. Patient reports symptoms started yesterday. Reports they seem to be intermittent in etiology, but seemed more persistent earlier this morning and continued throughout the morning. Reports pain is worse with movement. He denies any nausea or vomiting. He reports he has not had a bowel movement in the last week. He has a history of prostate cancer is currently taking oral chemotherapy. He reports his last dose of chemo was last night. Denies any fevers. Denies any history of abdominal surgeries. Denies any chest pain or shortness of breath. ROS: as above PHYSICAL EXAM: Constitutional: Patient appears in no acute distress. HENT: Head: Normocephalic and atraumatic. Eyes: EOMI, PERRL Mouth/Throat: Mucous membranes moist. Neck: Trachea midline. Neck supple. Cardiovascular: RRR, No murmurs, rubs or gallops. Intact distal pulses. Pulmonary/Chest: No respiratory distress. Breath sounds clear and equal bilaterally. No wheezes or rales. Abdominal: Abdomen soft, no rebound or guarding. RUQ TTP Rectal: Chaperoned by nursing staff. Patient has no palpable masses or hemorrhoids. No aicha blood or gross melena on exam. Hemoccult negative. Musculoskeletal: No edema, tenderness or deformity noted. Skin: Warm and dry. No rash, erythema, pallor or cyanosis Psychiatric: Appropriate mood and affect for situation. Neurological: Alert and keenly responsive. CN II-XII grossly intact, moving all extremities equally and fully. MDM: - Vitals signs showed tachycardia - History obtained via patient. History as above. - Chronic conditions affecting care: HTN; HLD; DM-2; prostate cancer - Differential diagnoses include, but are not limited to: Biliary colic; cholangitis; cholecystitis; hepatitis; right lower lobe pneumonia; pulmonary embolism; pyelonephritis; herpes zoster; perforated duodenal ulcer - Order placed for continuous cardiac monitoring. At this time, monitor showed rate of 83 bpm with normal sinus rhythm, per my interpretation. - External medical records reviewed. Result care coordination [facility] note from Dr. Cooper Trevizo dated 02/04/2025 was reviewed. Patient had a bone marrow examination done on 01/27/2025 that showed "markedly hypocellular bone marrow and it was limited biopsy specimen." - EKG image interpreted by myself showed normal sinus rhythm. Rate 90 bpm. QT 364. No acute ischemic changes. - Laboratory workup interpreted by myself showed normal WBC; anemia (Hgb 7.6); normal PT/INR; elevated BUN (30); elevated lactate (2.1); normal AST/ALT; normal troponin; normal lipase - UA negative for infection - CXR image reviewed by myself is negative for pneumonia, per my interpretation. Radiology notes pulmonary vascular congestion and cardiomegaly with a right hilar prominence related to pulmonary vessels. Noted to have extensive sclerotic skeletal metastases. - CT abdomen/pelvis with IV contrast no for acute abnormality. Noted to have skeletal metastases. I have a large. Gas and feces in the rectum and sigmoid colon. - Patient originally did not want any pain medication while in the emergency department. - Discussed results thoroughly with the patient at bedside. Unclear etiology for his symptoms at this time. However, he had significant pain with getting up to go to the bathroom while in the emergency department and had to stop frequently to try to catch his breath. Patient reports that he lives alone and he is hesitant to go home with his symptoms with movement. Will discuss case with the hospitalist service. He was ordered 0.5 mg IV Dilaudid. - Discussion was had with high risk case manager about patient's case and need for admission - Hospitalist consulted for admission - Patient admitted to [facility] hospitalist service for further evaluation and management. ASSESSMENT AND PLAN: Diagnosis: Right sided abdominal pain; anemia Plan: Admit Past Med/Surg History Problem List (Updated 02/05/25 @ 17:06 by Poonam Miller MD) Anemia (Acute) Right sided abdominal pain (Acute) Hypothyroidism History of colon polyps Elevated PSA Neuropathy Abnormal x-ray of lumbar spine Myalgia Lyme disease, unspecified Type 2 diabetes mellitus Hyperlipidemia Prostate cancer metastatic to bone (Chronic) HTN (hypertension) External hemorrhoids (Acute) Hyperglycemia (Acute) Premature ventricular contractions (Acute) Primary osteoarthritis of left knee (Acute) Tubular adenoma of colon (Acute) Medical History Hypothyroidism History of basal cell carcinoma HTN (hypertension) Prostate cancer metastatic to bone Enlarged prostate without lower urinary tract symptoms (luts) External hemorrhoids Premature ventricular contractions Primary osteoarthritis of left knee Tubular adenoma of colon History of colon polyps Osteoarthritis PSA elevation Transient ischemic attack (TIA) (2017) Hyperlipidemia Surgical History History of prostate biopsy History of removal of skin mole History of arthroscopy History of total knee replacement History of colonoscopy History of tooth extraction History of tonsillectomy History of loop recorder Family History Father Brain cancer Mother Hypertension Sister Bipolar disorder Sister No problems noted. Daughter Twin Daughter Twin Other No family history of adverse response to anesthesia Denies family history of Colon cancer Ovarian cancer Prostate cancer Diabetes Myocardial infarction Breast cancer Social History Smoking Status: Never smoker Tobacco Type: Cigarettes Age Started Using Tobacco: 16; Age Quit Using Tobacco: 49; packs per day: 1; Cigarettes Per Day: 1 PPD x 30yrs; Second Hand Exposure: No; Do You Dip or Chew Tobacco: No; Hx Alcohol Use: Yes (1/2 glass wine if goes out to dinner) Alcohol type: wine Hx Substance Use: No Preferred Language: Sudanese Communication Ability: Effective Visual Impairment: No Limitations Hearing Ability: Hard of Hearing Mortgage Processing Clerk Required: No Beliefs That Will Affect Care: None marital status: / Current Living Situation: Alone current occupational status: retired current occupation: From [employer] How many Children do You have: 2 Feels Safe at Home: Yes Diet: regular caffeine: Yes (3 cups/day) during the past year weight has: remained stable Physical Activity Frequency Comment: pickle ball, golf, fly fish, kayak Seatbelt Use: always Allergies Allergies Allergy/AdvReac Type Severity Reaction Status Date / Time [id number] Reductase AdvReac Intermediate Muscle Pain Verified 01/23/25 14:19 Inhibitor Home Meds Home Medications Medication Instructions Recorded Confirmed aspirin 325 mg tablet 325 mg PO QPM 12/22/18 02/05/25 apalutamide 60 mg tablet (Erleada) 240 mg PO QPM 03/07/22 02/05/25 ascorbic acid (vitamin C) 500 mg 1,500 mg PO QAM 03/07/22 02/05/25 chewable tablet (Vitamin C) cholecalciferol (vitamin D3) 50 100 mcg PO QAM 03/07/22 02/05/25 mcg (2,000 unit) tablet (Vitamin D3) cyanocobalamin (vitamin B-12) 1,000 mcg PO QAM 03/07/22 02/05/25 1,000 mcg tablet (Vitamin B-12) docusate sodium 100 mg capsule 100 mg PO DAILY 01/06/25 02/05/25 megestrol 400 mg/10 mL (40 mg/mL) 400 mg PO QAM 02/05/25 02/05/25 oral suspension Previous Rx's Medication Instructions Recorded celecoxib 200 mg capsule (Celebrex) 200 mg PO DAILY PRN pain #30 caps 09/21/23 amlodipine 5 mg tablet 5 mg PO QPM #90 tabs 05/03/24 levothyroxine 25 mcg tablet 25 mcg PO DAILY #30 tabs 12/07/24 tamsulosin 0.4 mg capsule 0.4 mg PO DAILY #90 caps 01/11/25 pravastatin 20 mg tablet 40 mg (2 x 20 mg) PO QPM #180 tabs 01/23/25 Results & Data (ED) Vital Signs Vital Signs - 24 hr 02/05/25 11:16 02/05/25 11:16 02/05/25 11:16 Temperature 36.7 C 36.7 C Temperature Source Oral Oral Pulse Rate 87 Pulse Rate [Right Brachial] 87 Pulse Rhythm Regular Pulse Rhythm [Right Brachial] Regular Pulse Strength Normal Pulse Strength [Right Brachial] Normal Respiratory Rate 16 16 Respiratory Effort / Characteristics Non-Labored Non-Labored Respiratory Depth Normal Normal Respiratory Pattern Regular Regular Blood Pressure 117/65 Blood Pressure [Right Arm] 117/65 Blood Pressure Mean 82 Blood Pressure Mean [Right Arm] 82 Blood Pressure Position Lying Blood Pressure Position [Right Arm] Lying Pulse Oximetry 95 95 95 Oxygen Delivery Method Room Air Room Air Room Air Sepsis Recent Fever Within 48 Hours No Sepsis New/Unexplained Change in Mental Status N/A Sepsis Action Taken by Nursing No Action Required 02/05/25 11:35 02/05/25 11:49 02/05/25 13:24 Temperature Temperature Source Pulse Rate 102 H Pulse Rate [Right Brachial] 83 Pulse Rhythm Pulse Rhythm [Right Brachial] Regular Pulse Strength Pulse Strength [Right Brachial] Normal Respiratory Rate 20 Respiratory Effort / Characteristics Non-Labored Respiratory Depth Normal Respiratory Pattern Regular Blood Pressure Blood Pressure [Right Arm] 125/71 Blood Pressure Mean Blood Pressure Mean [Right Arm] 89 Blood Pressure Position Blood Pressure Position [Right Arm] Lying Pulse Oximetry 95 99 Oxygen Delivery Method Room Air Room Air Sepsis Recent Fever Within 48 Hours Sepsis New/Unexplained Change in Mental Status Sepsis Action Taken by Nursing Laboratory Data 02/05/25 11:43 02/05/25 11:43 Lab Results 02/05/25 02/05/25 02/05/25 Range/Units 11:43 12:12 14:05 WBC 5.07 (4.8-10.8) K/ul RBC 2.54 L (4.70-6.10) M/uL Hgb 7.6 L (14.0-18.0) g/dl Hct 24.2 L (42.0-52.0) % MCV 95.3 (80.0-100.0) fL MCH 29.9 (25.0-34.0) pg MCHC 31.4 L (32.0-36.0) g/dL RDW Std Deviation 59.5 H (36.4-46.3) fL RDW Coeff of Vanna 17.2 H (11.5-14.5) % Plt Count 236 (130-400) K/uL MPV 9.4 (9.4-12.4) fL Immature Gran % (Auto) 4.1 % Neut % (Auto) 72.4 % Lymph % (Auto) 14.0 % [place] % (Auto) 7.7 % Eos % (Auto) 1.6 % Baso % (Auto) 0.2 % Neut # (Auto) 3.67 (1.40-6.50) K/uL Lymph # (Auto) 0.71 L (1.20-3.40) K/uL [place] # (Auto) 0.39 (0.11-0.59) K/uL Eos # (Auto) 0.08 (0.00-0.50) K/uL Baso # (Auto) 0.01 (0.00-0.20) K/uL Immature Gran # (Auto) 0.21 H (0.01-0.20) K/uL Anisocytosis Present PT 11.2 (9.0-12.0) Seconds INR 1.0 (0.9-1.1) Sodium 137 (136-145) mmol/L Potassium 4.4 (3.5-5.1) mmol/L Chloride 108 H (98-107) mmol/L Carbon Dioxide 19 L (21-32) mmol/L Anion Gap 10 (3-11) BUN 30 H (6-23) mg/dl Creatinine 0.68 (0.6-1.4) mg/dl Est Cr Clr Drug Dosing 90.9 ml/min eGFR 93.97 BUN/Creatinine Ratio 44.1 H (10-20) Glucose 166 H (70-99(Fasting)) mg/dl Lactate 2.1 H* 1.8 (0.4-2.0) mmol/L Calcium 9.1 (8.6-10.3) mg/dl Total Bilirubin 0.3 (0.2-1.0) mg/dl AST 7 L (13-39) U/L ALT 4 L (7-52) U/L Alkaline Phosphatase 128 H (34-104) U/L Troponin I High Sens 5.1 (0-20) pg/ml Total Protein 7.0 (6.0-8.3) gm/dl Albumin 3.5 (3.4-5.0) gm/dl Globulin 3.5 (2.5-4.0) gm/dl Albumin/Globulin Ratio 1.0 (0.9-2) Lipase 45 (11-82) U/L Urine Color Yellow Urine Appearance Clear (Clear) Urine pH 5.0 (4.5-7.5) Ur Specific [place] 1.022 (1.000-1.030) Urine Protein Trace H (Negative) Urine Glucose (UA) Negative (Negative) Urine Ketones Negative (Negative) Urine Blood Negative (Negative) Urine Nitrite Negative (Negative) Urine Bilirubin Negative (Negative) Urine Urobilinogen Negative (Negative) Ur Leukocyte Esterase Negative (Negative) Urine WBC (Auto) 0-5 (0-5) /hpf Urine RBC (Auto) 0-2 (0-2) /hpf U Hyaline Cast (Auto) 0-2 (0-2) /lpf U Epithel Cells (Auto) 0-2 (0-2) /hpf Urine Bacteria (Auto) None Seen (None Seen) Administered Medications Discontinued Medications Ioversol (Optiray 320 100ml) 94 ml IV ONCE ONE Stop: 02/05/25 12:57 Last Admin: 02/05/25 12:56 Dose: 94 ml Documented By: SEJ Imaging Data Radiologist's Impression: Chest X-Ray 02/05/25 11:35 XR chest 1V portable CLINICAL HISTORY: Right lower chest pain. COMPARISON STUDY: Chest radiograph November 04, 2010. PET/CT June 01, 2024. FINDINGS: Extensive skeletal sclerotic lesions were shown on PET/CT of June 01, 2024. Lung volumes are diminished. There is no pneumothorax or pleural effusion. Mild cardiomegaly is unchanged. Right hilar prominence is likely due to pulmonary vessels. Pulmonary vascular congestion without overt pulmonary edema. IMPRESSION: 1. Cardiomegaly with pulmonary vascular congestion. 2. Right hilar prominence likely related to pulmonary vessels. 3. Redemonstration of extensive sclerotic skeletal metastases. ACT 112: Negative or not required by law. Electronically signed by: Juan Miguel Goznalez M.D. 02/05/2025 11:56 AM Abdomen/Pelvis CT 02/05/25 11:36 EXAMINATION: CT of the abdomen and pelvis performed without contrast TECHNIQUE: Helical CT images from the lung bases through the symphysis pubis were obtained without contrast. Coronal and sagittal reformatted images were generated at a workstation for further assessment. Dose reduction techniques were achieved by using automatic exposure control and/or adjustment of mA and/or kV according to patient size and/or use of iterative reconstruction technique. COMPARISON: CT pelvis dated 07/06/2020 HISTORY: Abdominal pain FINDINGS: No liver lesions. Pancreas, gallbladder and spleen appeared normal. No hydronephrosis or kidney stones. Subcentimeter cyst left kidney. Infrarenal aortic aneurysm. AP dimension 3.36 cm. No inflammatory process noted in right lower abdomen. Large amount of gas and feces in the rectum and sigmoid colon. No free air, free fluid or evidence of bowel obstruction. Minimal thickening of the wall of the urinary bladder. Markedly abnormal skeletal structures consistent with metastatic disease likely from a prostate cancer. Impression No acute process noted in the abdomen or pelvis. Infrarenal aortic aneurysm. Skeletal metastases. Electronically signed by Davon Meraz 02-05-2025 2:12 PM Discharge Plan Visit Data Chief Complaint: Abdominal Pain Stated Complaint: RUQ ABD PAIN ED Provider: Poonam Miller Discharge Problem: Right sided abdominal pain, Anemia Forms Stand Alone Forms: My [facility] Prescriptions Prescriptions: No Action celecoxib [Celebrex] 200 mg capsule 200 mg PO DAILY PRN (Reason: pain) Qty: 30 2RF Rx Instructions: Last filled 07/2024 x90 day supply amlodipine 5 mg tablet 5 mg PO QPM Qty: 90 1RF levothyroxine 25 mcg tablet 25 mcg PO DAILY Qty: 30 2RF Rx Instructions: take 30 minutes before you eat in the AM on a empty stomach tamsulosin 0.4 mg capsule 0.4 mg PO DAILY Qty: 90 3RF pravastatin 20 mg tablet 40 mg PO QPM Qty: 180 1RF Rx Instructions: Please mail to pt. docusate sodium 100 mg capsule 100 mg PO DAILY Rx Instructions: Unable to verify OTC meds at this date/time. aspirin 325 mg Tablet 325 mg PO QPM Rx Instructions: Unable to verify OTC meds at this date/time. Erleada 60 mg tablet 240 mg PO QPM cyanocobalamin (vitamin B-12) [Vitamin B-12] 1,000 mcg Tablet 1,000 mcg PO QAM Rx Instructions: Unable to verify OTC meds at this date/time. ascorbic acid (vitamin C) [Vitamin C] 500 mg Tablet,Chewable 1,500 mg PO QAM Rx Instructions: Unable to verify OTC meds at this date/time. cholecalciferol (vitamin D3) [Vitamin D3] 50 mcg (2,000 unit) Tablet 100 mcg PO QAM Rx Instructions: Unable to verify OTC meds at this date/time. megestrol 400 mg/10 mL (40 mg/mL) suspension 400 mg PO QAM Referrals Referrals: Trever Cho MD [Primary Care Provider] -
--- NOTE | 2025-02-05 14:13 | CT Scan Report ---
EXAMINATION: CT of the abdomen and pelvis performed without contrast TECHNIQUE: Helical CT images from the lung bases through the symphysis pubis were obtained without contrast. Coronal and sagittal reformatted images were generated at a workstation for further assessment. Dose reduction techniques were achieved by using automatic exposure control and/or adjustment of mA and/or kV according to patient size and/or use of iterative reconstruction technique. COMPARISON: CT pelvis dated 07/06/2020 HISTORY: Abdominal pain FINDINGS: No liver lesions. Pancreas, gallbladder and spleen appeared normal. No hydronephrosis or kidney stones. Subcentimeter cyst left kidney. Infrarenal aortic aneurysm. AP dimension 3.36 cm. No inflammatory process noted in right lower abdomen. Large amount of gas and feces in the rectum and sigmoid colon. No free air, free fluid or evidence of bowel obstruction. Minimal thickening of the wall of the urinary bladder. Markedly abnormal skeletal structures consistent with metastatic disease likely from a prostate cancer. Impression No acute process noted in the abdomen or pelvis. Infrarenal aortic aneurysm. Skeletal metastases. Electronically signed by Davon Meraz 02-05-2025 2:12 PM
--- NOTE | 2025-02-05 18:41 | History & Physical Report ---
Date of Service February 05, 2025 Assessment & Plan (1) Right sided abdominal pain: (2) Anemia: (3) Type 2 diabetes mellitus: (4) Hypothyroidism: (5) Hyperlipidemia: (6) Prostate cancer metastatic to bone: (7) HTN (hypertension): Plan Patient is an 79 y/o M with PMHx of prostate cancer, DM-2, HTN, Anemia, HLD, and Hypothyroidism who comes to the ED due to RUQ pain admitted for management of constipation. RUQ pain // Constipation - Likely related to large stool burden noted in CTAP; no other findings to suggest other etiologies such as cholecystitis, ureterolithiasis, etc. - Will manage with Miralax and Colace; if poor response, can also consider a suppository or an enema - Suspect that once bm achieved, pain would also decrease - Once regimen established, can discharge patient back home - If pain persists despite adequate bm, would assess further to identify other causes Anemia - Chronic - Dr. Trevizo following him as an outpatient and bone marrow bx done recently to assess - Monitor am labs Prostate cancer - Follows with oncology as an outpatient - Currently on daily chemotherapy (PO); continue DM-2 - Hgb A1c from 01/12/2025 was 5.8% - Lantus and SSI ordered HTN - Continue home meds - Would try to maintain adequate BP control given infrarenal AAA found on CTAP Hypothyroidism - Continue home meds HLD - Continue home meds Dispo: Med/Surg; independent in ADLs and uses walker at baseline, can return home after discharge Fluids: LR Diet: DM2, HH VTE ppx: Lovenox Code Status: FULL History of Present Illness Chief Complaint: RUQ pain Primary Care Provider: Trever Cho MD Patient is an 79 y/o M with PMHx of prostate cancer, DM-2, HTN, Anemia, HLD, and Hypothyroidism who comes to the ED due to RUQ pain that began earlier today. Denies having any other associated sxs such as N/V, changes in PO intake, fevers, or other sxs. Patient states he has not been able to have a bm for 1 week. Was on Colace at one point but has not used this or Metamucil due to discord with a family member. This am he noted sharp pain in his RUQ that was aggravated with certain movements, mainly when he flexes his abdomen. Labs/Imaging: CBC w/o leukocytosis, Hgb low at 7.5, platelets of 236. CMP w/o significant electrolytes abnormalities, elevated BUN which may support some dehydration. LFTs wnl save for Alk phos elevated at 128 which could be related to concern for bone mets from his prostate cancer. U/A unremarkable. CTAP showing infrarenal AAA measuring 3.36 cm and no other abnormalities. CXR unrmarkable. Medical History: [Reviewed] Medications: [Reviewed] Surgical History: [Reviewed] Family history: [Reviewed] Allergies: [Reviewed] Social History: [Reviewed] Code Status: FULL Allergies Allergy/AdvReac Type Severity Reaction Status Date / Time [id number] Reductase AdvReac Intermediate Muscle Pain Verified 01/23/25 14:19 Inhibitor Home Medications Medication Instructions Recorded Confirmed Type aspirin 325 mg tablet 325 mg PO QPM 12/22/18 02/05/25 History apalutamide 60 mg tablet (Erleada) 240 mg PO QPM 03/07/22 02/05/25 History ascorbic acid (vitamin C) 500 mg 1,500 mg PO QAM 03/07/22 02/05/25 History chewable tablet (Vitamin C) cholecalciferol (vitamin D3) 50 100 mcg PO QAM 03/07/22 02/05/25 History mcg (2,000 unit) tablet (Vitamin D3) cyanocobalamin (vitamin B-12) 1,000 mcg PO QAM 03/07/22 02/05/25 History 1,000 mcg tablet (Vitamin B-12) celecoxib 200 mg capsule (Celebrex) 200 mg PO DAILY PRN pain #30 caps 09/21/23 02/05/25 Rx amlodipine 5 mg tablet 5 mg PO QPM #90 tabs 05/03/24 02/05/25 Rx levothyroxine 25 mcg tablet 25 mcg PO DAILY #30 tabs 12/07/24 02/05/25 Rx docusate sodium 100 mg capsule 100 mg PO DAILY 01/06/25 02/05/25 History tamsulosin 0.4 mg capsule 0.4 mg PO DAILY #90 caps 01/11/25 02/05/25 Rx pravastatin 20 mg tablet 40 mg (2 x 20 mg) PO QPM #180 tabs 01/23/25 02/05/25 Rx megestrol 400 mg/10 mL (40 mg/mL) 400 mg PO QAM 02/05/25 02/05/25 History oral suspension Past Med/Surg History Problem List (Updated 02/05/25 @ 17:06 by Poonam Miller MD) Anemia (Acute) Right sided abdominal pain (Acute) Hypothyroidism History of colon polyps Elevated PSA Neuropathy Abnormal x-ray of lumbar spine Myalgia Lyme disease, unspecified Type 2 diabetes mellitus Hyperlipidemia Prostate cancer metastatic to bone (Chronic) HTN (hypertension) External hemorrhoids (Acute) Hyperglycemia (Acute) Premature ventricular contractions (Acute) Primary osteoarthritis of left knee (Acute) Tubular adenoma of colon (Acute) Medical History Hypothyroidism History of basal cell carcinoma HTN (hypertension) Prostate cancer metastatic to bone Enlarged prostate without lower urinary tract symptoms (luts) External hemorrhoids Premature ventricular contractions Primary osteoarthritis of left knee Tubular adenoma of colon History of colon polyps Osteoarthritis PSA elevation Transient ischemic attack (TIA) (2017) Hyperlipidemia Surgical History History of prostate biopsy History of removal of skin mole History of arthroscopy History of total knee replacement History of colonoscopy History of tooth extraction History of tonsillectomy History of loop recorder Family History Father Brain cancer Mother Hypertension Sister Bipolar disorder Sister No problems noted. Daughter Twin Daughter Twin Other No family history of adverse response to anesthesia Denies family history of Colon cancer Ovarian cancer Prostate cancer Diabetes Myocardial infarction Breast cancer Social History Smoking Status: Never smoker Tobacco Type: Cigarettes Age Started Using Tobacco: 16; Age Quit Using Tobacco: 49; packs per day: 1; Cigarettes Per Day: 1 PPD x 30yrs; Second Hand Exposure: No; Do You Dip or Chew Tobacco: No; Hx Alcohol Use: Yes (1/2 glass wine if goes out to dinner) Alcohol type: wine Hx Substance Use: No Preferred Language: Sami Communication Ability: Effective Visual Impairment: No Limitations Hearing Ability: Hard of Hearing Public Information Officer Required: No Beliefs That Will Affect Care: None marital status: / Current Living Situation: Alone current occupational status: retired current occupation: From [employer] How many Children do You have: 2 Feels Safe at Home: Yes Diet: regular caffeine: Yes (3 cups/day) during the past year weight has: remained stable Physical Activity Frequency Comment: pickle ball, golf, fly fish, kayak Seatbelt Use: always Review of Systems Review of Systems: As per HPI Physical Exam Physical Exam: GENERAL: AAOx4, afebrile, NAD, able to ambulate around room independently HEAD: AT, NC EYES: EOM intact, MILI THROAT: normal to visual inspection CHEST: symmetric cherst expansions w/ respirations CARDIO: RRR, no r/m/g PULMONARY: CTA b/l, normal respiratory effort, no respiratory distress GI: soft, mildly distended, tenderness in RUQ also reproducible with deep inspiration EXTREMITIES: no swelling or calf tenderness in b/l LE Results & Data Results & Data Vital Signs (Past 12 Hours) Vital Signs Temp Pulse Pulse Resp BP BP Pulse Ox 02/05/25 18:00 87 24 135/86 100 02/05/25 17:30 90 25 H 131/88 100 02/05/25 17:00 91 H 23 132/78 99 02/05/25 16:30 88 25 H 118/86 99 02/05/25 16:30 118/86 02/05/25 16:00 86 26 H 119/78 100 02/05/25 13:24 83 20 125/71 99 02/05/25 11:49 102 H 02/05/25 11:35 95 02/05/25 11:16 95 02/05/25 11:16 36.7 C 87 16 117/65 95 02/05/25 11:16 36.7 C 87 16 117/65 95 O2 Del Method 02/05/25 18:00 02/05/25 17:30 02/05/25 17:00 02/05/25 16:30 02/05/25 16:30 02/05/25 16:00 02/05/25 13:24 Room Air 02/05/25 11:49 02/05/25 11:35 Room Air 02/05/25 11:16 Room Air 02/05/25 11:16 Room Air 02/05/25 11:16 Room Air Code Status & VTE Plan VTE Prophylaxis Plan VTE Prophylaxis will be ordered: Yes Supervising Physician Co-Signing Physician Notes I personally examined the patient and verified loomis points of history and exam, discussed case, and agree with decision making and plan documented by Dr. Ramana Mayen. Patient is a 79-year-old male with past medical history pertinent for prostate cancer with metastases to bone, anemia, T2DM, HLD, HTN, and hypothyroidism presenting with RUQ abdominal pain and constipation. Large stool burden noted on CT imaging, agree with bowel regimen, discussed possible suppository or enema if initial trial not successful. Resident Activity Tracking Resident Involvement: Resident Care Provided Care Provided: Adult Hospital Medicine
[2025-02-05] MEDS: HYDROmorphone INJ 0.5 MG/0.5 ML SYR IV STA (18:44)
[2025-02-05] MEDS: DOCUSATE SODIUM 100 MG CAP PO ONE (18:44)
[2025-02-05] MEDS ORDERED: ONDANSETRON INJ 2 MG/ML 2 ML VIAL IV PRN (20:21)
[2025-02-05] MEDS ORDERED: MELATONIN 3 MG TAB PO PRN (20:21)
[2025-02-05] MEDS ORDERED: CARBOHYDRATES FOR HYPOGLYCEMIA PO PRN (20:21)
[2025-02-05] MEDS ORDERED: GLUCOSE 10 TAB/TUBE PO PRN (20:21)
[2025-02-05] MEDS ORDERED: DEXTROSE 50% 50 ML SYRINGE IV PRN (20:21)
[2025-02-05] MEDS ORDERED: ACETAMINOPHEN 325 MG TAB PO PRN (20:21)
[2025-02-05] MEDS ORDERED: GLUCAGON FOR INJ 1 MG VIAL SQ PRN (20:21)
[2025-02-05] MEDS ORDERED: GLUCOSE 40% GEL 15 GM TUBE PO PRN (20:21)
[2025-02-05] MEDS: ENOXAPARIN INJ 40 MG/0.4 ML SYR SQ SCH (20:48)
[2025-02-05] MEDS: LACTATED RINGER'S 1,000 ML IV SCH (20:49)
[2025-02-05] MEDS: INSULIN ASPART PER UNIT CHARGE SC SCH (21:17)
[2025-02-05] MEDS: LANTUS PER UNIT CHARGE SQ SCH (21:35)
[2025-02-05] MEDS: PRAVASTATIN SOD 40 MG TAB PO SCH (21:35)
[2025-02-05] MEDS: amLODIPine BESYLATE 5 MG TAB PO SCH (21:35)
[2025-02-05] MEDS: POLYETHYLENE (MIRALAX) 17 GM PACK PO SCH (21:36)
[2025-02-06 05:04] LABS: BUN Creatinine Ratio 29.7 (10-20); Bilirubin,Total 0.3 mg/dl (0.2-1.0); Calcium 8.4 mg/dl (8.6-10.3); Creatinine Clr Calc Pharmacy 83.6 ml/min; Globulin 3.1 gm/dl (2.5-4.0); Total Protein 6.1 gm/dl (6.0-8.3)
[2025-02-06 05:13] LABS: Hematocrit (blood only) 21.9 % (42.0-52.0); Hemoglobin 6.9 g/dl (14.0-18.0); Mean Corpuscular Hemoglobin 29.9 pg (25.0-34.0); Mean Corpuscular Hgb Conc 31.5 g/dL (32.0-36.0); Mean Corpuscular Volume 94.8 fL (80.0-100.0); Mean Platelet Volume 9.4 fL (9.4-12.4); Platelet Count 209 K/uL (130-400); RDW Coefficient of Variation 17.4 % (11.5-14.5); RDW Standard Deviation 59.7 fL (36.4-46.3); Red Blood Count 2.31 M/uL (4.70-6.10); White Blood Count 4.84 K/ul (4.8-10.8)
[2025-02-06 05:17] LABS: Basophils # (auto) 0.01 K/uL (0.00-0.20); Basophils % (auto) 0.2 %; Eosinophils # (auto) 0.12 K/uL (0.00-0.50); Eosinophils % (auto) 2.5 %; Immature Granulocytes # (auto) 0.12 K/uL (0.01-0.20); Immature Granulocytes % (auto) 2.5 %; Lymphocytes # (auto) 0.91 K/uL (1.20-3.40); Lymphocytes % (auto) 18.8 %; Monocytes # (auto) 0.53 K/uL (0.11-0.59); Neutrophils # (auto) 3.15 K/uL (1.40-6.50); Polychromasia 1+; Tear Drop Cells 1+
[2025-02-06] MEDS: LEVOTHYROXINE SODIUM 25 MCG TABLET PO SCH (06:27)
--- NOTE | 2025-02-06 08:22 | Hospitalist Progress Note ---
Date of Service February 06, 2025 Assessment & Plan (1) Right sided abdominal pain: (2) Anemia: (3) Type 2 diabetes mellitus: (4) Hypothyroidism: (5) Hyperlipidemia: (6) Prostate cancer metastatic to bone: (7) HTN (hypertension): Plan Patient is an 79 y/o M with PMHx of prostate cancer, DM-2, HTN, Anemia, HLD, and Hypothyroidism who comes to the ED due to RUQ pain admitted for management of constipation. RUQ pain // Constipation - Likely related to large stool burden noted in CTAP; no other findings to suggest other etiologies such as cholecystitis, ureterolithiasis, etc. - Adequate BM achieved w Miralax (2 x 34g) and Colace (1 x 100mg) during stay. Pain then resolved. - Continue regimen of daily Miralax after discharge; counseled patient on adjusting dosage as needed Anemia - Chronic. Dr. Trevizo following him as an outpatient and bone marrow bx done recently to assess - Pt has h/o blood transfusions, most recently on 01/23. - Hgb was 7.6 on admission, dropped to 6.9. Transfused 1 unit pRBCs; Hgb improved to - Retic count wnl Prostate cancer - Follows with oncology as an outpatient - Continue usual chemotherapy (PO) T2DM - Hgb A1c from 01/12/2025 was 5.8% - Managed with Lantus and SSI during hospitalization HTN - Continue home meds. Good BP control is of particular importance given infrarenal AAA found on CTAP Hypothyroidism - Continue home meds HLD - Continue statin Dispo: Med/Surg; independent in ADLs and uses walker at baseline, can return home after discharge Fluids: LR Diet: DM2, HH VTE ppx: Lovenox Code Status: FULL Admission and Anticipated Discharge Date Admission Date: February 05, 2025 Review of Systems Review of Systems: As per HPI Results & Data Results & Data Vital Signs (Past 12 Hours) Vital Signs Temp Pulse Pulse Resp BP Pulse Ox O2 Del Method 02/06/25 06:54 86 02/05/25 23:47 36.9 C 88 21 128/73 99 Room Air 02/05/25 22:52 86 02/05/25 21:52 84 19 130/80 100 Room Air
[2025-02-06] MEDS ORDERED: SODIUM CHLORIDE 0.9% 100 ML IV PRN (08:24)
[2025-02-06] MEDS: TAMSULOSIN HCL 0.4 MG CAP PO SCH (08:59)
[2025-02-06 09:13] LABS: Reticulocyte % 1.33 % (0.50-2.00); Reticulocytes # 0.03 10^6/uL (0.020-0.100)
[2025-02-06 10:48] VITALS: O2SAT 100
[2025-02-06 13:30] VITALS: RESP 16
--- NOTE | 2025-02-06 14:11 | Electrocardiogram Report ---
Test Reason : Blood Pressure : */* mmHG Vent. Rate : 90 BPM Atrial Rate : 90 BPM P-R Int : 152 ms QRS Dur : 86 ms QT Int : 364 ms P-R-T Axes : 43 -28 36 degrees QTcB Int : 445 ms Sinus rhythm with occasional , and consecutive Premature ventricular complexes Septal infarct , age undetermined Abnormal ECG Confirmed by Trever Rizvi ([id number]) on 02/06/2025 2:10:35 PM Referred By: REFERRED SELF Confirmed By: Trever Rizvi
[2025-02-06 14:18] VITALS: TEMP 98.1
--- NOTE | 2025-02-06 14:18 | Discharge Summary ---
Date of Service February 06, 2025 Admission HPI Per Admitting Provider Patient is an 79 y/o M with PMHx of prostate cancer, DM-2, HTN, Anemia, HLD, and Hypothyroidism who comes to the ED due to RUQ pain that began earlier today. Denies having any other associated sxs such as N/V, changes in PO intake, fevers, or other sxs. Patient states he has not been able to have a bm for 1 week. Was on Colace at one point but has not used this or Metamucil due to discord with a family member. This am he noted sharp pain in his RUQ that was aggravated with certain movements, mainly when he flexes his abdomen. Labs/Imaging: CBC w/o leukocytosis, Hgb low at 7.5, platelets of 236. CMP w/o significant electrolytes abnormalities, elevated BUN which may support some dehydration. LFTs wnl save for Alk phos elevated at 128 which could be related to concern for bone mets from his prostate cancer. U/A unremarkable. CTAP showing infrarenal AAA measuring 3.36 cm and no other abnormalities. CXR unrmarkable. Medical History: [Reviewed] Medications: [Reviewed] Surgical History: [Reviewed] Family history: [Reviewed] Allergies: [Reviewed] Social History: [Reviewed] Code Status: FULL Admission Exam Per Admitting Provider GENERAL: AAOx4, afebrile, NAD, able to ambulate around room independently HEAD: AT, NC EYES: EOM intact, MILI THROAT: normal to visual inspection CHEST: symmetric cherst expansions w/ respirations CARDIO: RRR, no r/m/g PULMONARY: CTA b/l, normal respiratory effort, no respiratory distress GI: soft, mildly distended, tenderness in RUQ also reproducible with deep inspiration EXTREMITIES: no swelling or calf tenderness in b/l LE Principal Diagnosis abd pain 2/2 constipation Discharge Exam Gen: NAD, WD/WN HEENT: NCAT, PERRL, no conjunctival pallor CV: RRR, no m/r/g, S1/S2 normal Resp: CTAB, symmetrical chest rise, breathing non-labored Abd: Soft, NT/ND, +BS, no HSM MSK: Full ROM, no gross deformities Skin: Warm, dry, pink, no rashes or lesions Neuro: AOx3, CN II-XII grossly intact Psych: Mood-affect congruent. Speech pace and content normal. Discharge Data Allergies Allergy/AdvReac Type Severity Reaction Status Date / Time [id number] Reductase AdvReac Intermediate Muscle Pain Verified 01/23/25 14:19 Inhibitor Consultations 02/05/25 17:15 ED Decision to Admit Stat Ordered Studies 02/05/25 11:36 CT abd pelvis IV con only Stat Hospital Course (1) Right sided abdominal pain: (2) Anemia: (3) Type 2 diabetes mellitus: (4) Hypothyroidism: (5) Hyperlipidemia: (6) Prostate cancer metastatic to bone: (7) HTN (hypertension): Plan Patient is an 79 y/o M with PMHx of prostate cancer, DM-2, HTN, Anemia, HLD, and Hypothyroidism who comes to the ED due to RUQ pain admitted for management of constipation. RUQ pain // Constipation - Likely related to large stool burden noted in CTAP; no other findings to suggest other etiologies such as cholecystitis, ureterolithiasis, etc. - Adequate BM achieved w Miralax (2 x 34g) and Colace (1 x 100mg) during stay. Pain then resolved. - Continue regimen of daily Miralax after discharge; counseled patient on adjusting dosage as needed Anemia - Chronic. Dr. Trevizo following him as an outpatient and bone marrow bx done recently to assess - Pt has h/o blood transfusions, most recently on 01/23. - Hgb was 7.6 on admission, dropped to 6.9. Transfused 1 unit pRBCs; Hgb improved to 8.6 by time of discharge - Retic count wnl Prostate cancer - Follows with oncology as an outpatient - Continue usual chemotherapy (PO) T2DM - Hgb A1c from 01/12/2025 was 5.8% - Managed with Lantus and SSI during hospitalization HTN - Continue home meds. Good BP control is of particular importance given infrarenal AAA found on CTAP Hypothyroidism - Continue home meds HLD - Continue statin Total Time Total Time Spent Total Time Spent (In Minutes): See attending documentation Discharge Plan Discharge Items Patient Disposition: Home - Self-Care Reason For Visit: RUQ PAIN Discharge Diagnosis: abd pain 2/2 constipation Activity: Per Instructions section Non-emergency contact: Primary Care Provider, Oncologist and Urologist Call non-emergency contact if: you have any medication questions, your symptoms worsen and your pain is not controlled Follow-up/Referrals: Trever Cho MD [Primary Care Provider] - Diet: Carb Consistent or DM2 and Heart Healthy Addtl Attending Provider Instructions: You came to the hospital with abdominal pain. Initial imaging showed a large amount of retained stool and you were admitted for management of severe constipation. You were given several doses of laxatives (polyethylene glycol/Miralax and docusate/Colace). You were deemed ready for discharge after having adequate bowel movements and resolution of your pain. Medications Your medication list has been reviewed and reconciled. A current list is included with your discharge paperwork. You will need to continue taking Miralax (polyethylene glycol) daily after discharge from hospital. This medication is available [id number], so you can buy the generic version for yourself at any pharmacy. We recommend dissolving the powder in your morning coffee; start with 2 capfuls and adjust as needed to achieve 1 medium BM daily. Take your medications as instructed; do not skip a dose. Make sure all of your doctors know every medicine you are taking (including [id number] medicines, vitamins, and supplements). Call your PCP before taking any new medicines because some of these may interact with your current medications, or may make your symptoms worse. Follow-up appointments: Make a follow-up appointment with your PCP within the next week. It is very important that you follow up with them shortly after discharge so they can stay updated on your hospitalization and potential changes in your care. Continue to follow with Dr. Trevizo. Keep all your follow-up appointments as al ready scheduled. If you cannot make an appointment, notify your provider. Contact your PCP if your symptoms return or worsen. Call 911 or go to the ER if you experience any of the following: Sudden, severe abdominal pain or nausea/vomiting Severe chest pain, or chest pain that radiates (moves) to your jaw or arm Sudden, severe shortness of breath or difficulty breathing Thank you for allowing us to participate in your care. Pending Studies at Discharge: No Stand-Alone Forms: [facility], Smoking Cessation Medications and DC Order Prescriptions: New polyethylene glycol 3350 [Miralax] 17 gram Powder In Packet 17 g PO DAILY Qty: 30 0RF Continued celecoxib [Celebrex] 200 mg capsule 200 mg PO DAILY PRN (Reason: pain) Qty: 30 2RF Rx Instructions: Last filled 07/2024 x90 day supply amlodipine 5 mg tablet 5 mg PO QPM Qty: 90 1RF levothyroxine 25 mcg tablet 25 mcg PO DAILY Qty: 30 2RF Rx Instructions: take 30 minutes before you eat in the AM on a empty stomach tamsulosin 0.4 mg capsule 0.4 mg PO DAILY Qty: 90 3RF pravastatin 20 mg tablet 40 mg PO QPM Qty: 180 1RF Rx Instructions: Please mail to pt. docusate sodium 100 mg capsule 100 mg PO DAILY Rx Instructions: Unable to verify OTC meds at this date/time. aspirin 325 mg Tablet 325 mg PO QPM Rx Instructions: Unable to verify OTC meds at this date/time. Erleada 60 mg tablet 240 mg PO QPM cyanocobalamin (vitamin B-12) [Vitamin B-12] 1,000 mcg Tablet 1,000 mcg PO QAM Rx Instructions: Unable to verify OTC meds at this date/time. ascorbic acid (vitamin C) [Vitamin C] 500 mg Tablet,Chewable 1,500 mg PO QAM Rx Instructions: Unable to verify OTC meds at this date/time. cholecalciferol (vitamin D3) [Vitamin D3] 50 mcg (2,000 unit) Tablet 100 mcg PO QAM Rx Instructions: Unable to verify OTC meds at this date/time. megestrol 400 mg/10 mL (40 mg/mL) suspension 400 mg PO QAM Discharge Orders: Discharge Order (Routine); Ordered 02/06/25 Ordered By: Laure Jaramillo Admission Data Admit Date/Time: 02/05/25 18:09 Attending Provider: Srikanth Caba Admit Provider: Rachel Boles Primary Care Provider: Trever Cho Other Providers: Kellie Lopez Other Interventions: Discharge Summary Assessment (RN) Last Done: 02/06/25 17:05 Supervising Physician Co-Signing Physician Notes I personally examined the patient and verified all loomis points of history and exam, discussed case, and agree with decision making with Dr Santiago feeling much better after BM. oncology messaged about transfusion - ordered already, input appreciated and let pt know his oncologist was actively involved - appreciated. vitals noted nad heent nc at mmm breathing unlabored no accessory muscles good effort skin no rashes no pallor or icterus abdominal pain - constipation - improved. bowel regimen discussed. safe/stable for home anemia - almost certainly chemo related - retic and transfusion ordered. outpt f/u w primary oncologist otherwise as above Resident Activity Tracking Resident Involvement: Resident Care Provided Care Provided: Adult Hospital Medicine
[2025-02-06 16:33] LABS: Hematocrit (blood only) 26.7 % (42.0-52.0); Hemoglobin 8.6 g/dl (14.0-18.0)
[2025-02-06 17:08] VITALS: BP 119/74; PULSE 88
--- NOTE | 2025-02-06 17:56 | Billing Data ---
Date of Service February 06, 2025 Coding Level of Care Code 09898 IN/OBS DISCH 30 MIN/LESS
[2025-02-07] MEDS ORDERED: POLYETHYLENE (MIRALAX) 17 GM PACK PO SCH (09:00)
== END 2025-02-06 17:45 | disposition home or self-care (01) ==
LOC: ED 11:26 → EDINP 11:26 → SUATTDRO 18:09 → 3E 20:21

== ENCOUNTER 2025-05-19 23:15 | Observation (INO) ==
[2025-05-19] MEDS: FAMOTIDINE 20MG IV PUSH 20 MG/5 ML SYR IV STA (23:45)
[2025-05-19] MEDS: SODIUM CHLORIDE 0.9% 1,000 ML IV ONE (23:45)
[2025-05-19] MEDS: PANTOprazole 40 MG in DEXTROSE 5% MINI-B 100 ML IV SCH (23:49)
[2025-05-19] MEDS: SODIUM CHLORIDE 0.9% 1,000 ML IV SCH (23:49)
[2025-05-20] LABS: Alanine Aminotransferase 25 U/L (7-52); Albumin Globulin Ratio 1.3 (0.9-2); Alkaline Phosphatase 175 U/L (34-104); Anion Gap 8 (3-11); Bilirubin,Total 0.5 mg/dl (0.2-1.0); Blood Urea Nitrogen 32 mg/dl (6-23); Calcium 8.2 mg/dl (8.6-10.3); Carbon Dioxide 21 mmol/L (21-32); Chloride 109 mmol/L (98-107); Globulin 2.6 gm/dl (2.5-4.0); Glucose 98 mg/dl (70-99(Fasting)); Lipase 74 U/L (11-82); Magnesium 1.9 mg/dl (1.7-2.4); Potassium 4.5 mmol/L (3.5-5.1); Sodium 138 mmol/L (136-145); Total Protein 5.9 gm/dl (6.0-8.3)
[2025-05-20 00:12] LABS: Hematocrit (blood only) 27.1 % (42.0-52.0); Hemoglobin 8.8 g/dl (14.0-18.0); Mean Corpuscular Hemoglobin 30.9 pg (25.0-34.0); Mean Corpuscular Volume 95.1 fL (80.0-100.0); Platelet Count 50 K/uL (130-400); RDW Standard Deviation 62.4 fL (36.4-46.3); Red Blood Count 2.85 M/uL (4.70-6.10); White Blood Count 4.38 K/ul (4.8-10.8)
[2025-05-20 00:18] LABS: INR 1.0 (0.9-1.1); Partial Thromboplastin Time 30 Seconds (21-31); Prothrombin Time 10.9 Seconds (9.0-12.0)
[2025-05-20 00:33] VITALS: TEMP 97.9
[2025-05-20 00:36] LABS: Immature Granulocytes # (auto) 0.40 K/uL (0.01-0.20); Immature Granulocytes % (auto) 9.1 %
[2025-05-20 00:45] LABS: Appearance Urine Cloudy (Clear); Bacteria Urine Automated None Seen (None Seen); Cast Urine Automated 0-2 /lpf (0-2); Epithelial Cell Urine Auto 0-2 /hpf (0-2); Glucose Urine UA Negative (Negative); RBC Urine Automated 0-2 /hpf (0-2); WBC Urine Automated 0-5 /hpf (0-5)
--- NOTE | 2025-05-20 01:26 | History & Physical Report ---
Date of Service May 20, 2025 Assessment & Plan (1) Anemia: Plan: 79-year-old male with history of metastatic prostate cancer admitted for monitoring after epistaxis. While on monitor was also noted to have frequent PVCs and intermittent asymptomatic NSVT Epistaxis No ongoing epistaxis at time of admitting assessment. Resolved Will hold aspirin x 24 hours Was initially started on PPI for report of hematemesis. Patient reports he did not throw up at any point, but he was coughing up some bloody sputum at the same time he was having a nosebleed. He denies melena/hematochezia, and has no epigastric pain. PPI gtt. discontinued Continue to trend hemoglobin every 6 hours PVCs/NSVT Asymptomatic EKG: Sinus tachycardia, PVCs. On telemetry intermittently with NSVT and high PVC burden. Troponin normal History of CAD. He denies chest pain/chest pressure. Notes he had sore ribs after fall but other than this he has had no chest discomfort and is in no discomfort on admission. Denies palpitations No prior echo for review. TTE ordered Optimize magnesium 2.0, potassium 4.0 Echo pending Metoprolol 25 mg twice daily started with hold parameters Cough Patient reports congestion/cough for several days Started coughing up blood 05/19 following a nosebleed Denies aspiration event but does note he felt phlegmy and a little bit rundown prior to his nosebleed and cough Chest x-ray ordered. Mildly neutropenic although with a immature granulocytic expansion. Afebrile. Denies fever/chills/sweats Chronic anemia Bone marrow 01/2025 hypocellular. No metastatic bone marrow disease was noted at that time, limited biopsy specimen Received intermittent transfusions as needed at [facility] Hemoglobin 8.8. No current indication for transfusion Hemoglobin trended Transfuse as needed for threshold of 7, or significant symptoms Metastatic prostate cancer Currently on Lupron. Stopped apalutamide this past month. - Xgeva 12/05/2020 - 08/05/2024 and subsequently held No acute change in management Flomax continued History of SAH With transfer to [facility] [place] 02/2025 for fall with 6 mm SAH stable on repeat imaging and subsequently discharged home without surgical intervention. Aspirin was resumed on discharge. History of TIA Aspirin held for epistaxis and anemia, resume if stable 05/21 Hypertension Amlodipine held for borderline hypotension, and w/ addition of metoprolol Hypothyroidism Synthroid continued CODE STATUS: DNR/DNI. This is a change from prior CODE STATUS and was reviewed with patient on admission, and also noted his risk of arrhythmia and PVCs versus NSVT which is new from prior. Diet: Regular Disposition: PCU DVT prophylaxis: SCDs. Pharmacoprophylaxis held for epistaxis and anemia (2) Type 2 diabetes mellitus: (3) Hyperlipidemia: (4) Prostate cancer metastatic to bone: (5) NSVT (nonsustained ventricular tachycardia): History of Present Illness Primary Care Provider: Trever Cho MD Christoph is an 79-year-old male with a history of prostate cancer with bony metastasis on Lupron, apalutamide discontinued 02/2025, Xgeva every 3 months currently on hold who presented on referral from [facility] for epistaxis. Christoph reports he has been 'phlegmy' the last 2-3 days. Has had some nasal drainage and nosebleeds. When coughing had some bright red blood come up after a nosebleed. Denies black/bloody bowel movements although reports he does not usually look. No abdominal pain. Denies vomiting/emesis but did have coughing from nosebleed with bright red blood. Denies aspiration/chocking. Chronically short of breath since being treated for prostate cancer, but has not noticed any change in this. 'I get transfusions as needed. I feel better after these, no shortness of breath outside of this.' He does no feel short of breath or like his counts are low at time of admission. He reports he had a fall several weeks ago, felt sore after this but denies other chest pain. Denies loss of conciousness, denies chest pain/syncope/presyncope that led to his fall just felt weak. Was a little sore in the ribs, but this got better. "I was des I didn't get hurt." Denies history of heart disease/GA/CAD/chest pain. No chest pain with exertion, although endorses he gets tired easily when his blood counts are low. Has prostate cancer. Sees Dr. Trevizo every few weeks. He is currently on lupron. Reports he has to void fairly frequently, otherwise doing well with this. Denies dysuria and hesitancy. Denies fever chills and sweats. Denies lightheadedness/dizziness. Medical History: Reviewed Medications: Reviewed Surgical History: Reviewed Family history: Reviewed Allergies: Reviewed Social History: Denies tobacco/ETOH Code Status: DNR/DNI. This is a change from prior CODE STATUS. This was discussed with Christoph discussed concern for his arrythmia He reports that he would not want chest compressions, CPR, intubation/ventilation either in the case of a cardiac or respiratory arrest, or frequent significant decline and it was unlikely he were to return to his normal baseline. In an emergency he would want his daughter Juli to be called first and be his surrogate decision maker. Did d/w Juli and review his plan of care at [facility] of admission. Allergies Allergy/AdvReac Type Severity Reaction Status Date / Time Xfoqode-XSG-HgM Reductase AdvReac Intermediate Muscle Pain Verified 05/19/25 23:59 Inhibitor Home Medications Medication Instructions Recorded Confirmed Type aspirin 325 mg tablet 325 mg PO QPM 12/22/18 05/20/25 History ascorbic acid (vitamin C) 500 mg 1,500 mg PO QAM 03/07/22 05/20/25 History chewable tablet (Vitamin C) cholecalciferol (vitamin D3) 50 100 mcg PO QAM 03/07/22 05/20/25 History mcg (2,000 unit) tablet (Vitamin D3) celecoxib 200 mg capsule (Celebrex) 200 mg PO DAILY PRN pain #30 caps 09/21/23 05/20/25 Rx docusate sodium 100 mg capsule 100 mg PO DAILY 01/06/25 05/20/25 History megestrol 400 mg/10 mL (40 mg/mL) 400 mg PO QAM 02/05/25 05/20/25 History oral suspension polyethylene glycol 3350 17 gram 17 g PO DAILY #30 ea 02/06/25 05/20/25 Rx oral powder packet (Miralax) amlodipine 5 mg tablet 5 mg PO QPM #90 tabs 04/17/25 05/20/25 Rx acetaminophen 500 mg capsule 1,000 mg (2 x 500 mg) PO Q8H PRN 04/25/25 05/20/25 Rx pain #30 caps ibuprofen 200 mg tablet (Motrin IB) 400 mg PO Q6H PRN Pain 05/20/25 05/20/25 History levothyroxine 25 mcg tablet 25 mcg PO DAILYBB 05/20/25 05/20/25 History oxycodone 5 mg tablet 5 mg PO Q6H PRN Pain 05/20/25 05/20/25 History pravastatin 40 mg tablet 40 mg PO QPM 05/20/25 05/20/25 History tamsulosin 0.4 mg capsule 0.4 mg PO QPM 05/20/25 05/20/25 History Past Med/Surg History Problem List (Updated 05/20/25 @ 01:50 by Chase Mendoza MD) NSVT (nonsustained ventricular tachycardia) Anemia (Acute) Hypothyroidism History of colon polyps Elevated PSA Neuropathy Abnormal x-ray of lumbar spine Myalgia Lyme disease, unspecified Type 2 diabetes mellitus Hyperlipidemia Prostate cancer metastatic to bone (Chronic) HTN (hypertension) External hemorrhoids (Acute) Hyperglycemia (Acute) Premature ventricular contractions (Acute) Primary osteoarthritis of left knee (Acute) Tubular adenoma of colon (Acute) Medical History Right sided abdominal pain History of basal cell carcinoma Enlarged prostate without lower urinary tract symptoms (luts) History of colon polyps Osteoarthritis PSA elevation FOLLOWS WITH DR. AKBAR Transient ischemic attack (TIA) (2017) Hyperlipidemia Surgical History History of prostate biopsy History of removal of skin mole BCC 2019 History of arthroscopy RT/LEFT KNEE (MENISCUS) History of total knee replacement RT History of colonoscopy last 2018 History of tooth extraction History of tonsillectomy History of loop recorder REMOVED (NEVER SHOWED ANYTHING) Family History Father , in his 70s or 80s Brain cancer Mother , 91yo Hypertension Sister Bipolar disorder Sister No problems noted. Daughter Twin Daughter Twin Other No family history of adverse response to anesthesia Denies family history of Colon cancer Ovarian cancer Prostate cancer Diabetes Myocardial infarction Breast cancer Social History Smoking Status: Former smoker Tobacco Type: Cigarettes Age Started Using Tobacco: 16; Age Quit Using Tobacco: 49; packs per day: 1; Cigarettes Per Day: 1 PPD x 30yrs; Second Hand Exposure: No; Do You Dip or Chew Tobacco: No; Hx Alcohol Use: Yes Alcohol type: wine Hx Substance Use: No Preferred Language: Azeri Communication Ability: Effective Visual Impairment: No Limitations Hearing Ability: Hard of Hearing Side Door Man Required: No Beliefs That Will Affect Care: None marital status: / Current Living Situation: Alone current occupational status: retired current occupation: From [employer] How many Children do You have: 2 Feels Safe at Home: Yes Diet: regular caffeine: Yes (3 cups/day) during the past year weight has: remained stable Physical Activity Frequency Comment: pickle ball, golf, fly fish, kayak Seatbelt Use: always Assistive Devices: Cane Physical Exam Physical Exam: General: A&Ox3. NAD. Cooperative. HEENT: Atraumatic, normocephalic. No epistaxis at time of admitting assessment. Hard of hearing, but able to communicate effectively without hearing aids as long as provider speaks clearly mildly. Vision intact. Pupils equal reactive to light Pulm: CTAB A&P. -wheezes, -rales, -rhonchi. Symmetrical chest rise. No increased work of breathing. No respiratory distress. Cardiac: RRR, soft SM. Radial pulses intact and symmetrical. Abdominal: Nontender, nondistended, soft. BS present. Extremities: Warm, dry. No edema. Results & Data Results & Data Vital Signs (Past 12 Hours) Vital Signs Temp Pulse Pulse Resp BP BP Pulse Ox 05/19/25 23:37 102 H 05/19/25 23:33 36.6 C 104 H 22 100/59 L 98 05/19/25 23:33 84 20 100 05/19/25 23:33 36.6 C 83 20 128/76 95 05/19/25 23:33 96 05/19/25 23:25 110 H O2 Del Method 05/19/25 23:37 05/19/25 23:33 Room Air 05/19/25 23:33 Room Air 05/19/25 23:33 Room Air 05/19/25 23:33 Room Air 05/19/25 23:25 PG Care Time/CCT Total # of Minutes Spent Total Time Spent with Patient: Total time spent is greater than 50% in coordination of care (as documented) at patient's floor/unit and/or counseling patient: Coding Level of Care Code 49780 INT INP/OBS CARE 3/75MIN Diagnoses Anemia D64.9 Type 2 diabetes mellitus E11.9 Hyperlipidemia E78.5 Prostate cancer metastatic to bone C61; C79.51 NSVT (nonsustained ventricular tachycardia) I47.29
[2025-05-20] MEDS: PANTOPRAZOLE BOLUS/DRIP IV STA (01:31)
[2025-05-20] MEDS: MAGNESIUM SULFATE / D5W 1 GM/100 ML BAG IV ONE (01:57)
--- NOTE | 2025-05-20 03:35 | Emergency Department Note ---
History of Present Illness General Chief complaint: Bleeding Stated complaint: BLEEDING FROM MOUTH Time Seen by Provider: 05/19/25 23:28 History of Present Illness This is an 79-year-old male presenting to the emergency department via EMS for evaluation of epistaxis. Patient reportedly had epistaxis the past few days, and has anemia of undiagnosed origin. Patient is currently at [facility] and has had recent blood transfusions due to anemia. The patient states that his hemoglobin has been in the high sixes and sevens. He states that after some epistaxis he had episodes of coughing/bringing up red blood or stomach contents. This was concerning and the residential contacted EMS. On arrival to the ER the patient bleeding is well-controlled without active bleeding. He is on aspirin but no blood thinners. No injury or trauma. No lightheadedness, dizziness, chest pain, chest tightness, or shortness of breath. On arrival to the ER the patient is having several episodes of nonsustained V. tach. Home Medications Medication Instructions Recorded Confirmed Type aspirin 325 mg tablet 325 mg PO QPM 12/22/18 05/20/25 History ascorbic acid (vitamin C) 500 mg 1,500 mg PO QAM 03/07/22 05/20/25 History chewable tablet (Vitamin C) cholecalciferol (vitamin D3) 50 100 mcg PO QAM 03/07/22 05/20/25 History mcg (2,000 unit) tablet (Vitamin D3) celecoxib 200 mg capsule (Celebrex) 200 mg PO DAILY PRN pain #30 caps 09/21/23 05/20/25 Rx docusate sodium 100 mg capsule 100 mg PO DAILY 01/06/25 05/20/25 History megestrol 400 mg/10 mL (40 mg/mL) 400 mg PO QAM 02/05/25 05/20/25 History oral suspension polyethylene glycol 3350 17 gram 17 g PO DAILY #30 ea 02/06/25 05/20/25 Rx oral powder packet (Miralax) amlodipine 5 mg tablet 5 mg PO QPM #90 tabs 04/17/25 05/20/25 Rx acetaminophen 500 mg capsule 1,000 mg (2 x 500 mg) PO Q8H PRN 04/25/25 05/20/25 Rx pain #30 caps ibuprofen 200 mg tablet (Motrin IB) 400 mg PO Q6H PRN Pain 05/20/25 05/20/25 History levothyroxine 25 mcg tablet 25 mcg PO DAILYBB 05/20/25 05/20/25 History oxycodone 5 mg tablet 5 mg PO Q6H PRN Pain 05/20/25 05/20/25 History pravastatin 40 mg tablet 40 mg PO QPM 05/20/25 05/20/25 History tamsulosin 0.4 mg capsule 0.4 mg PO QPM 05/20/25 05/20/25 History Allergies Allergy/AdvReac Type Severity Reaction Status Date / Time [id number] Reductase AdvReac Intermediate Muscle Pain Verified 05/19/25 23:59 Inhibitor Past Med/Surg History Problem List (Updated 05/20/25 @ 03:41 by Luc Martinez PA-C) NSVT (nonsustained ventricular tachycardia) (Acute) Anemia (Acute) Hypothyroidism History of colon polyps Elevated PSA Neuropathy Abnormal x-ray of lumbar spine Myalgia Lyme disease, unspecified Type 2 diabetes mellitus Hyperlipidemia Prostate cancer metastatic to bone (Chronic) HTN (hypertension) External hemorrhoids (Acute) Hyperglycemia (Acute) Premature ventricular contractions (Acute) Primary osteoarthritis of left knee (Acute) Tubular adenoma of colon (Acute) Medical History Right sided abdominal pain History of basal cell carcinoma Enlarged prostate without lower urinary tract symptoms (luts) History of colon polyps Osteoarthritis PSA elevation FOLLOWS WITH DR. AKBAR Transient ischemic attack (TIA) (2016) Hyperlipidemia Surgical History History of prostate biopsy History of removal of skin mole BCC 2019 History of arthroscopy RT/LEFT KNEE (MENISCUS) History of total knee replacement RT History of colonoscopy last 2018 History of tooth extraction History of tonsillectomy History of loop recorder REMOVED (NEVER SHOWED ANYTHING) Family History Father , in his 70s or 80s Brain cancer Mother , 91yo Hypertension Sister Bipolar disorder Sister No problems noted. Daughter Twin Daughter Twin Other No family history of adverse response to anesthesia Denies family history of Colon cancer Ovarian cancer Prostate cancer Diabetes Myocardial infarction Breast cancer Social History Smoking Status: Never smoker Tobacco Type: Cigarettes Age Started Using Tobacco: 16; Age Quit Using Tobacco: 49; packs per day: 1; Cigarettes Per Day: 1 PPD x 30yrs; Second Hand Exposure: No; Do You Dip or Chew Tobacco: No; Hx Alcohol Use: Yes Alcohol type: wine Hx Substance Use: No Preferred Language: Zambian Communication Ability: Effective Visual Impairment: No Limitations Hearing Ability: Hard of Hearing [place] Required: No Beliefs That Will Affect Care: None marital status: / Current Living Situation: Alone current occupational status: retired current occupation: From [employer] How many Children do You have: 2 Feels Safe at Home: Yes Diet: regular caffeine: Yes (3 cups/day) during the past year weight has: remained stable Physical Activity Frequency Comment: pickle ball, golf, fly fish, kayak Seatbelt Use: always Assistive Devices: Cane Review of Systems A total of 10 systems reviewed and were otherwise negative Physical Exam Vital Signs Vital Signs - 24 hr 05/19/25 23:25 05/19/25 23:33 05/19/25 23:33 Temperature 36.6 C Temperature Source Oral Pulse Rate 110 H Pulse Rate [Right Finger] 83 Respiratory Rate 20 Respiratory Effort / Characteristics Non-Labored Spontaneous Respiratory Depth Normal Respiratory Pattern Regular Blood Pressure Blood Pressure [Right Arm] 128/76 Blood Pressure Mean Blood Pressure Mean [Right Arm] 93 Pulse Oximetry 96 95 Oxygen Delivery Method Room Air Room Air Sepsis Recent Fever Within 48 Hours Sepsis New/Unexplained Change in Mental Status Sepsis Action Taken by Nursing 05/19/25 23:33 05/19/25 23:33 05/19/25 23:37 Temperature 36.6 C Temperature Source Oral Pulse Rate 84 104 H 102 H Pulse Rate [Right Finger] Respiratory Rate 20 22 Respiratory Effort / Characteristics Non-Labored Spontaneous Respiratory Depth Normal Respiratory Pattern Regular Blood Pressure 100/59 L Blood Pressure [Right Arm] Blood Pressure Mean 72 Blood Pressure Mean [Right Arm] Pulse Oximetry 100 98 Oxygen Delivery Method Room Air Room Air Sepsis Recent Fever Within 48 Hours No Sepsis New/Unexplained Change in Mental Status N/A Sepsis Action Taken by Nursing Physician Notified 05/20/25 02:00 05/20/25 03:00 05/20/25 03:11 Temperature 36.6 C Temperature Source Oral Pulse Rate 97 H 95 H Pulse Rate [Right Finger] 98 H Respiratory Rate 24 22 Respiratory Effort / Characteristics Non-Labored Spontaneous Respiratory Depth Normal Respiratory Pattern Regular Blood Pressure 108/81 Blood Pressure [Right Arm] 126/74 Blood Pressure Mean Blood Pressure Mean [Right Arm] 91 Pulse Oximetry 99 98 Oxygen Delivery Method Room Air Room Air Sepsis Recent Fever Within 48 Hours Sepsis New/Unexplained Change in Mental Status Sepsis Action Taken by Nursing VITALS: Vitals are noted on the nurse's note and reviewed by myself. Vital signs stable. GENERAL: Well-developed, well-nourished, elderly white male who is pleasant and hard of hearing. NOSE: Patent, turbinates without inflammation or discharge. MOUTH: Mucous membranes moist. Tonsils are not enlarged. Pharynx without erythema, blood, or exudate. Uvula midline. Airway patent. NECK: Supple without nuchal rigidity. No lymphadenopathy. No thyromegaly. Cervical spine is nontender. HEART: Regular rate and rhythm with several PVCs LUNGS: Clear to auscultation bilaterally without wheezes, rales or rhonchi. No retractions or accessory muscle use. ABDOMEN: Positive normal bowel sounds x 4. Soft, nontender, without masses or organomegaly. No guarding or rebound tenderness. MUSCULOSKELETAL: No muscle atrophy, erythema, or edema noted. Full range of motion in all extremities. Course Administered Medications Pantoprazole Sodium 40 mg/ (Dextrose) 100 mls @ 20 mls/hr IV Q5H [facility] Stop: 06/18/25 23:44 Last Admin: 05/19/25 23:49 Dose: 8 mg/hr, 20 mls/hr Documented By: JUAN JOSÉ Magnesium Sulfate/Dextrose (Magnesium Sulfate / D5w) 1 gm in 100 mls @ 50 mls/hr IV ONE ONE Stop: 05/20/25 03:41 Last Admin: 05/20/25 01:57 Dose: 50 mls/hr Documented By: KARI Discontinued Medications Sodium Chloride (Nss) 1,000 mls @ 999 mls/hr IV .Q1H1M CHRISTINA Stop: 05/20/25 00:45 Last Infusion: 05/20/25 01:31 Dose: Infused Documented By: Admin: 05/19/25 23:49 Dose: 999 mls/hr Documented By: JUAN JOSÉ Pantoprazole Sodium 80 mg/ (Dextrose) 120 mls @ 480 mls/hr IV NOW ONE Stop: 05/19/25 23:46 Last Infusion: 05/20/25 00:01 Dose: Infused Documented By: JUAN JOSÉ Admin: 05/19/25 23:50 Dose: 480 mls/hr Documented By: JUAN JOSÉ Famotidine (Pepcid 20mg Iv Push) 20 mg in 5 mls @ 2.5 mls/min IV NOW STA Stop: 05/19/25 23:33 Last Admin: 05/19/25 23:45 Dose: 2.5 mls/min Documented By: JUAN JOSÉ Sodium Chloride (Nss) 1,000 mls @ 999 mls/hr IV .Q1H1M ONE Stop: 05/20/25 00:32 Last Infusion: 05/20/25 01:31 Dose: Infused Documented By: Admin: 05/19/25 23:45 Dose: 999 mls/hr Documented By: JUAN JOSÉ Pantoprazole Sodium (Pantoprazole Bolus/Drip) 1 each IV NOW STA Stop: 05/19/25 23:33 Last Admin: 05/20/25 01:31 Dose: Not Given Documented By: KARI Medical Decision Making Differential Diagnosis Differential diagnosis includes, but is not limited to: Myocardial infarction, dysrhythmia, pericarditis, pneumothorax, aortic aneurysm/dissection, DVT/PE, anxiety, GERD, PUD, electrolyte imbalance, thyroid disorder, pneumonia, bronchitis, pancreatitis, and others Laboratory Data 05/19/25 23:33 05/19/25 23:33 Lab Results 05/19/25 05/19/25 05/19/25 Range/Units 23:22 23:27 23:28 WBC (4.8-10.8) K/ul RBC (4.70-6.10) M/uL Hgb (14.0-18.0) g/dl POC Hgb 7.8 L (14.0-18.0) g/dl Hct (42.0-52.0) % POC Hct 23 L (42-52) % MCV (80.0-100.0) fL MCH (25.0-34.0) pg MCHC (32.0-36.0) g/dL RDW Std Deviation (36.4-46.3) fL RDW Coeff of Vanna (11.5-14.5) % Plt Count (130-400) K/uL MPV (9.4-12.4) fL Immature Gran % (Auto) % Neut % (Auto) % Lymph % (Auto) % [place] % (Auto) % Eos % (Auto) % Baso % (Auto) % Neut # (Auto) (1.40-6.50) K/uL Lymph # (Auto) (1.20-3.40) K/uL [place] # (Auto) (0.11-0.59) K/uL Eos # (Auto) (0.00-0.50) K/uL Baso # (Auto) (0.00-0.20) K/uL Immature Gran # (Auto) (0.01-0.20) K/uL Absolute Nucleated RBC (0.00-0.12) K/uL Nucleated RBC % (auto) % PT (9.0-12.0) Seconds INR (0.9-1.1) APTT (21-31) Seconds PTT Ratio POC Sodium 138 (135-144) mmol/L Sodium (136-145) mmol/L POC Potassium 4.5 (3.3-5.0) mmol/L Potassium (3.5-5.1) mmol/L POC Chloride 110 (101-112) mmol/L Chloride (98-107) mmol/L Carbon Dioxide (21-32) mmol/L POC Total CO2 18 L (24-31) mmol/L Anion Gap (3-11) POC Anion Gap 16.0 (16-25) mmol/L POC BUN 26 H (7-18) mg/dl BUN (6-23) mg/dl Creatinine (0.6-1.4) mg/dl POC Creatinine 1.5 H (0.6-1.3) mg/dl Est Cr Clr Drug Dosing eGFR BUN/Creatinine Ratio (10-20) Glucose (70-99(Fasting)) mg/dl POC Glucose (other) 98 (70-99) mg/dl Calcium (8.6-10.3) mg/dl POC Ioniz Calcium Amilcar 1.18 (1.12-1.32) mmol/l Magnesium (1.7-2.4) mg/dl Total Bilirubin (0.2-1.0) mg/dl AST (13-39) U/L ALT (7-52) U/L Alkaline Phosphatase (34-104) U/L Troponin I High Sens (0-20) pg/ml Total Protein (6.0-8.3) gm/dl Albumin (3.4-5.0) gm/dl Globulin (2.5-4.0) gm/dl Albumin/Globulin Ratio (0.9-2) Lipase (11-82) U/L Urine Color Urine Appearance (Clear) Urine pH (4.5-7.5) Ur Specific Str[place] (1.000-1.030) Urine Protein (Negative) Urine Glucose (UA) (Negative) Urine Ketones (Negative) Urine Blood (Negative) Urine Nitrite (Negative) Urine Bilirubin (Negative) Urine Urobilinogen (Negative) Ur Leukocyte Esterase (Negative) Urine WBC (Auto) (0-5) /hpf Urine RBC (Auto) (0-2) /hpf U Hyaline Cast (Auto) (0-2) /lpf U Epithel Cells (Auto) (0-2) /hpf Urine Bacteria (Auto) (None Seen) Urine Comment Lyme Disease Screen Negative (Negative) Blood Type A Positive Antibody Screen NEGATIVE 05/19/25 05/20/25 Range/Units 23:33 00:26 WBC 4.38 L (4.8-10.8) K/ul RBC 2.85 L (4.70-6.10) M/uL Hgb 8.8 L (14.0-18.0) g/dl POC Hgb (14.0-18.0) g/dl Hct 27.1 L (42.0-52.0) % POC Hct (42-52) % MCV 95.1 (80.0-100.0) fL MCH 30.9 (25.0-34.0) pg MCHC 32.5 (32.0-36.0) g/dL RDW Std Deviation 62.4 H (36.4-46.3) fL RDW Coeff of Vanna 18.6 H (11.5-14.5) % Plt Count 50 L (130-400) K/uL MPV 10.6 (9.4-12.4) fL Immature Gran % (Auto) 9.1 % Neut % (Auto) 53.9 % Lymph % (Auto) 24.4 % [place] % (Auto) 10.3 % Eos % (Auto) 1.6 % Baso % (Auto) 0.7 % Neut # (Auto) 2.36 (1.40-6.50) K/uL Lymph # (Auto) 1.07 L (1.20-3.40) K/uL [place] # (Auto) 0.45 (0.11-0.59) K/uL Eos # (Auto) 0.07 (0.00-0.50) K/uL Baso # (Auto) 0.03 (0.00-0.20) K/uL Immature Gran # (Auto) 0.40 H (0.01-0.20) K/uL Absolute Nucleated RBC 0.07 (0.00-0.12) K/uL Nucleated RBC % (auto) 1.6 % PT 10.9 (9.0-12.0) Seconds INR 1.0 (0.9-1.1) APTT 30 (21-31) Seconds PTT Ratio 1.1 POC Sodium (135-144) mmol/L Sodium 138 (136-145) mmol/L POC Potassium (3.3-5.0) mmol/L Potassium 4.5 (3.5-5.1) mmol/L POC Chloride (101-112) mmol/L Chloride 109 H (98-107) mmol/L Carbon Dioxide 21 (21-32) mmol/L POC Total CO2 (24-31) mmol/L Anion Gap 8 (3-11) POC Anion Gap (16-25) mmol/L POC BUN (7-18) mg/dl BUN 32 H (6-23) mg/dl Creatinine 1.30 (0.6-1.4) mg/dl POC Creatinine (0.6-1.3) mg/dl Est Cr Clr Drug Dosing Not Reportable eGFR 55.53 BUN/Creatinine Ratio 24.6 H (10-20) Glucose 98 (70-99(Fasting)) mg/dl POC Glucose (other) (70-99) mg/dl Calcium 8.2 L (8.6-10.3) mg/dl POC Ioniz Calcium Amilcar (1.12-1.32) mmol/l Magnesium 1.9 (1.7-2.4) mg/dl Total Bilirubin 0.5 (0.2-1.0) mg/dl AST 24 (13-39) U/L ALT 25 (7-52) U/L Alkaline Phosphatase 175 H (34-104) U/L Troponin I High Sens 7.9 (0-20) pg/ml Total Protein 5.9 L (6.0-8.3) gm/dl Albumin 3.3 L (3.4-5.0) gm/dl Globulin 2.6 (2.5-4.0) gm/dl Albumin/Globulin Ratio 1.3 (0.9-2) Lipase 74 (11-82) U/L Urine Color Yellow Urine Appearance Cloudy A (Clear) Urine pH 5.5 (4.5-7.5) Ur Specific [place] 1.022 (1.000-1.030) Urine Protein Negative (Negative) Urine Glucose (UA) Negative (Negative) Urine Ketones Trace H (Negative) Urine Blood Negative (Negative) Urine Nitrite Negative (Negative) Urine Bilirubin Negative (Negative) Urine Urobilinogen Negative (Negative) Ur Leukocyte Esterase Negative (Negative) Urine WBC (Auto) 0-5 (0-5) /hpf Urine RBC (Auto) 0-2 (0-2) /hpf U Hyaline Cast (Auto) 0-2 (0-2) /lpf U Epithel Cells (Auto) 0-2 (0-2) /hpf Urine Bacteria (Auto) None Seen (None Seen) Urine Comment Lyme Disease Screen (Negative) Blood Type Antibody Screen MDM Narrative Physical exam and history were performed. Nursing notes, EMR, and Medication List were personally reviewed. No social concerns were identified as barriers to patients care. History was provided by the Patient and EMS. Patient appears to have epistaxis bringing him to the ER. Patient was seen immediately on arrival as I was alerted by nursing that he is having concerning PVCs. On the monitor this seems consistent with nonsustained V. tach. EKG was performed and was without acute ST elevation. Case discussed with my attending. IV access was established and labs were obtained. He was given IV saline, IV Protonix, and IV Pepcid for possible upper GI bleed. Type and screen gathered. An order was placed for continuous cardiac monitoring. The monitor shows a rate of 95 with predominantly normal sinus rhythm with frequent PVCs. There is episodic V. tach runs lasting not longer than 8 beats. Patient's blood work is as above and was reviewed. He does not have a significant elevated white blood cell count. He is mildly anemic at 8.8. BUN is 32. Transaminases not diagnostic. Troponin is negative. Urine without distinct evidence of infection. Patient was monitored very closely as he continues to have several dysrhythmic episodes. His ventricular function seems never changing and dynamic. Remains without ST elevation, and clinically he is without any symptoms laying in his bed. Ultimately the patient does not appear well for discharge. Escalation of care is felt to be necessary. Case was discussed with the on-call hospitalist, who agreed to evaluate the patient here in the ER. Please see their dictation for further patient course, plan, disposition. The chart was completed utilizing [employer] Speech Voice Recognition Software. Grammatical errors, random word insertions, pronoun errors, and incomplete sentences are an occasional consequence of this system due to software limitations, ambient noise, and hardware issues. Any formal questions or concerns about the content, text, or information contained within the body of this dictation should be directly addressed to the provider for clarification. Impression & Plan NSVT (nonsustained ventricular tachycardia) Discharge Plan Visit Data Chief Complaint: Bleeding Stated Complaint: BLEEDING FROM MOUTH ED Provider: Treasure Almoodvar ED Midlevel Provider: Luc Martinez Discharge Problem: NSVT (nonsustained ventricular tachycardia) Patient Disposition: Admitted As Inpatient Condition: Fair Discharge Instructions Interventions: ED Discharge Assessment Last Done: 05/20/25 03:00 Forms Stand Alone Forms: [employer] Prescriptions Prescriptions: No Action celecoxib [Celebrex] 200 mg capsule 200 mg PO DAILY PRN (Reason: pain) Qty: 30 2RF amlodipine 5 mg tablet 5 mg PO QPM Qty: 90 1RF acetaminophen 500 mg capsule 1,000 mg PO Q8H MDD 3 GRAMS/24 HOURS PRN (Reason: pain) Qty: 30 0RF docusate sodium 100 mg capsule 100 mg PO DAILY aspirin 325 mg Tablet 325 mg PO QPM ascorbic acid (vitamin C) [Vitamin C] 500 mg Tablet,Chewable 1,500 mg PO QAM cholecalciferol (vitamin D3) [Vitamin D3] 50 mcg (2,000 unit) Tablet 100 mcg PO QAM megestrol 400 mg/10 mL (40 mg/mL) suspension 400 mg PO QAM polyethylene glycol 3350 [Miralax] 17 gram Powder In Packet 17 g PO DAILY Qty: 30 0RF pravastatin 40 mg Tablet 40 mg PO QPM ibuprofen [Motrin IB] 200 mg Tablet 400 mg PO Q6H PRN (Reason: Pain) Rx Instructions: ALTERNATING WITH TYLENOL oxycodone 5 mg Tablet 5 mg PO Q6H PRN (Reason: Pain) levothyroxine 25 mcg tablet 25 mcg PO DAILYBB tamsulosin 0.4 mg capsule 0.4 mg PO QPM Referrals Referrals: Trever Cho MD [Primary Care Provider] -
--- NOTE | 2025-05-20 04:57 | XRay Report ---
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 COMPARISON: prior 03/07/2025 FINDINGS: Pulmonary Parenchyma: OBX.5.1OBX.5.1.1 Bilateral diffuse interstitial reticulations /OBX.5.1.1OBX.5.1.2 bronchovascular markenings /OBX.5.1.2/OBX.5.1 No evidence of consolidation, collapse, or focal opacities. No pulmonary nodules identified. No evidence of pleural effusion or pleural thickening. Heart and Mediastinum: Mild cardiomegaly Enlarged right hilar shadow with a lobulated outline. Bony Thorax: Stable diffuse patchy sclerosis throughout the visualized skeleton suggests osseous metastatic disease. No fractures or deformities. Soft Tissues: Soft tissues overlying the chest wall are unremarkable. IMPRESSION: OBX.5.1OBX.5.1.11. Bilateral diffuse interstitial reticulations /OBX.5.1.1OBX.5.1.2 bronchovascular markings. /OBX.5.1.2/OBX.5.1 2. Mild cardiomegaly. 3. Enlarged right hilar shadow with a lobulated outline. 4. Stable diffuse patchy sclerosis throughout the visualized skeleton, osseous metastasis. 5. No time interval significant radiological changes. Electronically signed by Kenn Sam 05-20-2025 04:57 AM
[2025-05-20] MEDS ORDERED: ACETAMINOPHEN 500 MG TAB PO PRN (05:26)
[2025-05-20 05:32] VITALS: RESP 18
[2025-05-20] MEDS: LEVOTHYROXINE SODIUM 25 MCG TABLET PO SCH (06:46)
[2025-05-20 07:51] VITALS: BP 107/53; PULSE 90; O2SAT 98
--- NOTE | 2025-05-20 07:52 | Hospitalist Progress Note ---
Date of Service May 20, 2025 Assessment & Plan (1) Anemia: Plan: 79-year-old male with history of metastatic prostate cancer admitted for monitoring after epistaxis. While on monitor was also noted to have frequent PVCs and intermittent asymptomatic NSVT Epistaxis No ongoing epistaxis at time of admitting assessment. Resolved Will hold aspirin x 24 hours Was initially started on PPI for report of hematemesis. Patient reports he did not throw up at any point, but he was coughing up some bloody sputum at the same time he was having a nosebleed. He denies melena/hematochezia, and has no epigastric pain. PPI gtt. discontinued PVCs/NSVT Asymptomatic EKG: Sinus tachycardia, PVCs. On telemetry intermittently with NSVT and high PVC burden. Troponin normal History of CAD. He denies chest pain/chest pressure. Notes he had sore ribs after fall but other than this he has had no chest discomfort and is in no discomfort on admission. Denies palpitations No prior echo for review. TTE ordered/ pending Optimize magnesium 2.0, potassium 4.0 Chronic anemia Bone marrow 01/2025 hypocellular. No metastatic bone marrow disease was noted at that time, limited biopsy specimen Received intermittent transfusions as needed at [facility] Hemoglobin 8.8. No current indication for transfusion Metastatic prostate cancer Currently on Lupron. Stopped apalutamide this past month. - Xgeva 12/05/2020 - 08/05/2024 and subsequently held No acute change in management Flomax continued History of SAH [place] [facility] [place] with 6 mm SAH stable on repeat imaging and subsequently discharged home without surgical intervention. Aspirin was resumed on discharge. History of TIA Aspirin held for epistaxis and anemia, resume if stable 7/6 Hypertension Amlodipine held for borderline hypotension, and w/ addition of metoprolol Hypothyroidism Synthroid continued CODE STATUS: DNR/DNI. This is a change from prior CODE STATUS and was reviewed with patient on admission, and also noted his risk of arrhythmia and PVCs versus NSVT which is new from prior. DVT prophylaxis: SCDs. Pharmacoprophylaxis held for epistaxis and anemia (2) Type 2 diabetes mellitus: (3) Hyperlipidemia: (4) Prostate cancer metastatic to bone: (5) NSVT (nonsustained ventricular tachycardia): Admission and Anticipated Discharge Date Admission Date: May 20, 2025 Results & Data Results & Data Vital Signs (Past 12 Hours) Vital Signs Temp Pulse Pulse Resp BP BP Pulse Ox 05/20/25 04:30 96 H 05/20/25 04:23 05/20/25 04:10 97.9 F 102 H 18 138/53 L 100 05/20/25 04:10 97.9 F 98 H 20 138/53 L 100 05/20/25 03:11 95 H 05/20/25 03:00 97.9 F 97 H 22 108/81 98 05/20/25 02:00 98 H 24 126/74 99 05/19/25 23:37 102 H 05/19/25 23:33 97.9 F 104 H 22 100/59 L 98 05/19/25 23:33 84 20 100 05/19/25 23:33 97.9 F 83 20 128/76 95 05/19/25 23:33 96 05/19/25 23:25 110 H Pulse Ox O2 Del Method O2 Del Method 05/20/25 04:30 05/20/25 04:23 100 Room Air 05/20/25 04:10 Room Air 05/20/25 04:10 Room Air 05/20/25 03:11 05/20/25 03:00 Room Air 05/20/25 02:00 Room Air 05/19/25 23:37 05/19/25 23:33 Room Air 05/19/25 23:33 Room Air 05/19/25 23:33 Room Air 05/19/25 23:33 Room Air 05/19/25 23:25 PG Care Time/CCT Total # of Minutes Spent Total Time Spent with Patient: Total time spent is greater than 50% in coordination of care (as documented) at patient's floor/unit and/or counseling patient: Coding Diagnoses Anemia D64.9 Type 2 diabetes mellitus E11.9 Hyperlipidemia E78.5 Prostate cancer metastatic to bone C61; C79.51 NSVT (nonsustained ventricular tachycardia) I47.29
[2025-05-20] MEDS: DOCUSATE SODIUM 100 MG CAP PO SCH (09:23)
[2025-05-20] MEDS: CHOLECALCIFEROL 25 MCG (1000 UNITS) TAB PO SCH (09:23)
[2025-05-20] MEDS: ASCORBIC ACID 500 MG TAB PO SCH (09:23)
[2025-05-20] MEDS: MEGESTROL ACETATE SUSP 400 MG/10 ML UDC PO SCH (09:23)
[2025-05-20] MEDS: POLYETHYLENE (MIRALAX) 17 GM PACK PO SCH (09:23)
--- NOTE | 2025-05-20 12:06 | Cardiology Consultation ---
Date of Consultation May 20, 2025 Assessment & Plan (1) NSVT (nonsustained ventricular tachycardia): Plan 1. NSVT: He does not seem to have an electrolyte imbalance (potassium and magnesium were normal) History of Present Illness Reason for Consultation: Nonsustained ventricular tachycardia Attending Physician: Chase Mendoza MD History of Present Illness This is an 79-year-old male, resident of [facility], who has a history of prostate cancer and a reported TIA presented to the emergency room with epistaxis occurring for several days. According to his home medications in the chart he is on aspirin but not on anticoagulants. Of note he fell and was noted to have a subdural hematoma on March 07, 2025 and was transferred to [place] where neurosurgery evaluated him and I believe they felt that he did not have a subdural hematoma he was not admitted. In the emergency room on this visit he was noted to have episodes of nonsustained ventricular tachycardia, which to my knowledge has not been known in the past. Allergies Allergy/AdvReac Type Severity Reaction Status Date / Time Jbmrhaz-UEB-VkO Reductase AdvReac Intermediate Muscle Pain Verified 05/19/25 23:59 Inhibitor Home Medications Medication Instructions Recorded Confirmed Type aspirin 325 mg tablet 325 mg PO QPM 12/22/18 05/20/25 History ascorbic acid (vitamin C) 500 mg 1,500 mg PO QAM 03/07/22 05/20/25 History chewable tablet (Vitamin C) cholecalciferol (vitamin D3) 50 100 mcg PO QAM 03/07/22 05/20/25 History mcg (2,000 unit) tablet (Vitamin D3) celecoxib 200 mg capsule (Celebrex) 200 mg PO DAILY PRN pain #30 caps 09/21/23 05/20/25 Rx docusate sodium 100 mg capsule 100 mg PO DAILY 01/06/25 05/20/25 History megestrol 400 mg/10 mL (40 mg/mL) 400 mg PO QAM 02/05/25 05/20/25 History oral suspension polyethylene glycol 3350 17 gram 17 g PO DAILY #30 ea 02/06/25 05/20/25 Rx oral powder packet (Miralax) amlodipine 5 mg tablet 5 mg PO QPM #90 tabs 04/17/25 05/20/25 Rx acetaminophen 500 mg capsule 1,000 mg (2 x 500 mg) PO Q8H PRN 04/25/25 05/20/25 Rx pain #30 caps ibuprofen 200 mg tablet (Motrin IB) 400 mg PO Q6H PRN Pain 05/20/25 05/20/25 History levothyroxine 25 mcg tablet 25 mcg PO DAILYBB 05/20/25 05/20/25 History oxycodone 5 mg tablet 5 mg PO Q6H PRN Pain 05/20/25 05/20/25 History pravastatin 40 mg tablet 40 mg PO QPM 05/20/25 05/20/25 History tamsulosin 0.4 mg capsule 0.4 mg PO QPM 05/20/25 05/20/25 History Patient History Medical History Right sided abdominal pain History of basal cell carcinoma Enlarged prostate without lower urinary tract symptoms (luts) History of colon polyps Osteoarthritis PSA elevation FOLLOWS WITH DR. AKBAR Transient ischemic attack (TIA) (2016) Hyperlipidemia Surgical History History of prostate biopsy History of removal of skin mole BCC 2019 History of arthroscopy RT/LEFT KNEE (MENISCUS) History of total knee replacement RT History of colonoscopy last 2018 History of tooth extraction History of tonsillectomy History of loop recorder REMOVED (NEVER SHOWED ANYTHING) Family History Father , in his 70s or 80s Brain cancer Mother , 91yo Hypertension Sister Bipolar disorder Sister No problems noted. Daughter Twin Daughter Twin Other No family history of adverse response to anesthesia Denies family history of Colon cancer Ovarian cancer Prostate cancer Diabetes Myocardial infarction Breast cancer Social History Smoking Status: Former smoker Tobacco Type: Cigarettes Age Started Using Tobacco: 16; Age Quit Using Tobacco: 49; packs per day: 1; Cigarettes Per Day: 1 PPD x 30yrs; Smoking End Date: 1956; Second Hand Exposure: No; Do You Dip or Chew Tobacco: No; Hx Alcohol Use: Yes Alcohol type: wine Hx Substance Use: No Preferred Language: Namibian Communication Ability: Effective Visual Impairment: No Limitations Hearing Ability: Hard of Hearing Medical Center Representative Required: No Beliefs That Will Affect Care: None marital status: / Current Living Situation: Alone current occupational status: retired current occupation: From [employer] How many Children do You have: 2 Other Information That Helps Us Care for You: No Feels Safe at Home: Yes Safety Concerns: Feels Safe At This Time Diet: regular caffeine: Yes (3 cups/day) during the past year weight has: remained stable Physical Activity Frequency Comment: pickle ball, golf, fly fish, kayak Seatbelt Use: always Assistive Devices: Cane Assistive Devices Comment: walker Results & Data Vital Signs (Past 12 Hours) Vital Signs Temp Pulse Pulse Resp BP BP Pulse Ox 05/20/25 07:50 36.6 C 90 18 107/53 L 98 05/20/25 04:30 96 H 05/20/25 04:23 05/20/25 04:10 36.6 C 102 H 18 138/53 L 100 05/20/25 04:10 36.6 C 98 H 20 138/53 L 100 05/20/25 03:11 95 H 05/20/25 03:00 36.6 C 97 H 22 108/81 98 05/20/25 02:00 98 H 24 126/74 99 Pulse Ox O2 Del Method O2 Del Method 05/20/25 07:50 Room Air 05/20/25 04:30 05/20/25 04:23 100 Room Air 05/20/25 04:10 Room Air 05/20/25 04:10 Room Air 05/20/25 03:11 05/20/25 03:00 Room Air 05/20/25 02:00 Room Air Laboratory Results Cardiac Enzymes 05/19/25 Range/Units 23:33 AST 24 (13-39) U/L Troponin I High Sens 7.9 (0-20) pg/ml Coagulation 05/19/25 Range/Units 23:33 PT 10.9 (9.0-12.0) Seconds APTT 30 (21-31) Seconds CBC 05/19/25 Range/Units 23:33 WBC 4.38 L (4.8-10.8) K/ul RBC 2.85 L (4.70-6.10) M/uL Hgb 8.8 L (14.0-18.0) g/dl Hct 27.1 L (42.0-52.0) % Plt Count 50 L (130-400) K/uL Neut # (Auto) 2.36 (1.40-6.50) K/uL Lymph # (Auto) 1.07 L (1.20-3.40) K/uL Gage # (Auto) 0.45 (0.11-0.59) K/uL Eos # (Auto) 0.07 (0.00-0.50) K/uL Baso # (Auto) 0.03 (0.00-0.20) K/uL Comprehensive Metabolic Panel 05/19/25 Range/Units 23:33 Sodium 138 (136-145) mmol/L Potassium 4.5 (3.5-5.1) mmol/L Chloride 109 H (98-107) mmol/L Carbon Dioxide 21 (21-32) mmol/L BUN 32 H (6-23) mg/dl Creatinine 1.30 (0.6-1.4) mg/dl Glucose 98 (70-99(Fasting)) mg/dl Calcium 8.2 L (8.6-10.3) mg/dl AST 24 (13-39) U/L ALT 25 (7-52) U/L Alkaline Phosphatase 175 H (34-104) U/L Total Protein 5.9 L (6.0-8.3) gm/dl Albumin 3.3 L (3.4-5.0) gm/dl Intake and Output 05/19/25 05/20/25 05/20/25 22:59 06:59 14:59 Intake Total 2320 / 2320 120 / 120 Output Total 100 / 100 Balance 2220 / 2220 120 / 120 Intake: IV 2320 / 2320 Magnesium Sulfate / D5w 1 gm In 100 / 100 100 ml @ 50 mls/hr IV ONE ONE Rx#:[id number] PANTOprazole 40 mg In Dextrose 100 / 100 5% Mini-B 100 ml @ 8 MG/HR 20 mls/hr IV Q5H [facility] Rx#:[id number] PANTOprazole 80 mg In Dextrose 120 / 120 5% 100 ml @ 480 mls/hr IV NOW ONE Rx#:[id number] Sodium Chloride 0.9% 1,000 ml @ 2000 / 2000 999 mls/hr IV .Q1H1M ONE Rx#: [id number] Oral 120 / 120 Output: Urine 100 / 100 Other: # Unmeasured Voids 1 Weight 72 kg Weight Measurement Method Built in [facility] Magnesium is normal at 1.9 Diagnostic Findings Telemetry: PG Care Time/CCT Total # of Minutes Spent Total Time Spent with Patient: Total time spent is greater than 50% in coordination of care (as documented) at patient's floor/unit and/or counseling patient: Coding Diagnoses NSVT (nonsustained ventricular tachycardia) I47.29
--- NOTE | 2025-05-20 13:09 | XCELERA ---
[id number]
--- NOTE | 2025-05-20 13:25 | Discharge Summary ---
Discharge Summary Date of Service May 20, 2025 Principal Dx & Hospital Course #1 = Principal Diagnosis (1) Anemia: 79-year-old male with history of metastatic prostate cancer admitted for monitoring after epistaxis. While on monitor was also noted to have frequent PVCs and intermittent asymptomatic NSVT Epistaxis without recurrent . Resolved patient may consider using saline nasal spray Hold aspirin for additional 5 days He denies melena/hematochezia, and has no epigastric pain. PPI gtt. discontinued PVCs/NSVT Asymptomatic EKG: Sinus tachycardia, PVCs. On telemetry intermittently with NSVT and high PVC burden. Troponin normal History of CAD. He denies chest pain/chest pressure. Notes he had sore ribs after fall but other than this he has had no chest discomfort and is in no discomfort on admission. Denies palpitations Patient will have follow-up with outpatient electrophysiology to consider outpatient testing including perhaps a Holter monitor or multiday event monitor Chronic anemia Bone marrow 01/2025 hypocellular. No metastatic bone marrow disease was noted at that time, limited biopsy specimen Received intermittent transfusions as needed at [facility] Hemoglobin 8.8. No current indication for transfusion Metastatic prostate cancer Currently on Lupron. Stopped apalutamide this past month. - Xgeva 12/05/2020 - 08/05/2024 and subsequently held No acute change in management Flomax continued History of SAH With transfer to [facility] 02/2025 for fall with 6 mm SAH stable on repeat imaging and subsequently discharged home without surgical intervention. Aspirin was resumed on discharge. History of TIA Aspirin held for epistaxis and anemia, resume if stable Hypertension Amlodipine held for borderline hypotension, and w/ addition of metoprolol Hypothyroidism Synthroid continued CODE STATUS: DNR/DNI. This is a change from prior CODE STATUS and was reviewed with patient on admission, and also noted his risk of arrhythmia and PVCs versus NSVT which is new from prior. (2) Type 2 diabetes mellitus: (3) Hyperlipidemia: (4) Prostate cancer metastatic to bone: (5) NSVT (nonsustained ventricular tachycardia): Notes For Next Care Provider Consider holding aspirin for additional 5 days Multiple vitamin with iron. Choice of facility Cardiology follow-up with electrophysiology Admission HPI Per Admitting Provider Christoph is an 79-year-old male with a history of prostate cancer with bony metastasis on Lupron, apalutamide discontinued 02/2025, Xgeva every 3 months currently on hold who presented on referral from [facility] for epistaxis. Christoph reports he has been 'phlegmy' the last 2-3 days. Has had some nasal drainage and nosebleeds. When coughing had some bright red blood come up after a nosebleed. Denies black/bloody bowel movements although reports he does not usually look. No abdominal pain. Denies vomiting/emesis but did have coughing from nosebleed with bright red blood. Denies aspiration/chocking. Chronically short of breath since being treated for prostate cancer, but has not noticed any change in this. 'I get transfusions as needed. I feel better after these, no shortness of breath outside of this.' He does no feel short of breath or like his counts are low at time of admission. He reports he had a fall several weeks ago, felt sore after this but denies other chest pain. Denies loss of conciousness, denies chest pain/syncope/presyncope that led to his fall just felt weak. Was a little sore in the ribs, but this got better. "I was des I didn't get hurt." Denies history of heart disease/MT/CAD/chest pain. No chest pain with exertion, although endorses he gets tired easily when his blood counts are low. Has prostate cancer. Sees Dr. Trevizo every few weeks. He is currently on lupron. Reports he has to void fairly frequently, otherwise doing well with this. Denies dysuria and hesitancy. Denies fever chills and sweats. Denies lightheadedness/dizziness. Medical History: Reviewed Medications: Reviewed Surgical History: Reviewed Family history: Reviewed Allergies: Reviewed Social History: Denies tobacco/ETOH Code Status: DNR/DNI. This is a change from prior CODE STATUS. This was discussed with Christoph discussed concern for his arrythmia He reports that he would not want chest compressions, CPR, intubation/ventilation either in the case of a cardiac or respiratory arrest, or frequent significant decline and it was unlikely he were to return to his normal baseline. In an emergency he would want his daughter Juli to be called first and be his surrogate decision maker. Did d/w Juli and review his plan of care at [facility] of admission. Discharge Exam Patient doing well no additional nosebleeds. Having no symptoms with regard to some minor arrhythmia seen on monitoring. Discharge Plan Discharge Items Patient Disposition: Personal [facility] Reason For Visit: EPISTAXIS, ANEMIA Discharge Diagnosis: nose bleed short runs of svt, non sustained Condition on Discharge: Fair Activity: Resume your previous activity Non-emergency contact: Primary Care Provider Call non-emergency contact if: your symptoms worsen Follow-up/Referrals: Trever Cho MD [Primary Care Provider] - Diet: Carb Consistent or DM2 Addtl Attending Provider Instructions: please hold aspirin for 5 days, and eliminate Motrin or ibuprofen from med list use Tylenol as first line agent for pain, then if no relief use oxycodone but be wary for constipation please have blood count checked on Thursday05/22/25 Addtl Manufacturing Sr Engineer Provider Instructions: consider using a multivitamin with iron may also use saline nasal spray to moisturize nose we are stopping your blood pressure medicine due to low blood pressure at this time you will be contacted by Cardiology for an outpt follow up appointment to keep surveillance on your heart rhythm Pending Studies at Discharge: No Stand-Alone Forms: My BCNX, Smoking Cessation Skilled Items Patient informed of condition?: Yes DNR: Yes Discharge Level of Care: Other Communicable Disease: No Discharge Prognosis: Stable Lines: None Urinary Catheter: No Medications and DC Order Prescriptions: New Multi-Vitamins with Iron Tablet,Chewable 1 tab PO DAILY Qty: 30 3RF Rx Instructions: administer with a meal Continued acetaminophen 500 mg capsule 1,000 mg PO Q8H MDD 3 GRAMS/24 HOURS PRN (Reason: pain) Qty: 30 0RF docusate sodium 100 mg capsule 100 mg PO DAILY ascorbic acid (vitamin C) [Vitamin C] 500 mg Tablet,Chewable 1,500 mg PO QAM cholecalciferol (vitamin D3) [Vitamin D3] 50 mcg (2,000 unit) Tablet 100 mcg PO QAM megestrol 400 mg/10 mL (40 mg/mL) suspension 400 mg PO QAM polyethylene glycol 3350 [Miralax] 17 gram Powder In Packet 17 g PO DAILY Qty: 30 0RF pravastatin 40 mg Tablet 40 mg PO QPM oxycodone 5 mg Tablet 5 mg PO Q6H PRN (Reason: Pain) levothyroxine 25 mcg tablet 25 mcg PO DAILYBB tamsulosin 0.4 mg capsule 0.4 mg PO QPM Held aspirin 325 mg Tablet 325 mg PO QPM Hold Instructions: Resume on 05/25/25. Discontinued celecoxib [Celebrex] 200 mg capsule 200 mg PO DAILY PRN (Reason: pain) Qty: 30 2RF amlodipine 5 mg tablet 5 mg PO QPM Qty: 90 1RF ibuprofen [Motrin IB] 200 mg Tablet 400 mg PO Q6H PRN (Reason: Pain) Rx Instructions: ALTERNATING WITH TYLENOL Discharge Orders: Discharge Order (Routine); Ordered 05/20/25 Ordered By: Shukri Saavedra Admission Data Admit Date/Time: 05/20/25 01:52 Attending Provider: Chase Mendoza Admit Provider: Chase Mendoza Primary Care Provider: Trever Cho Other Providers: Chase Mendoza Other Interventions: Discharge Summary Assessment (RN) Last Done: 05/20/25 12:22 Hospital Stay Data Consultations 05/20/25 02:46 ED Decision to Admit Stat Pending Results Patient Have Any Pending Studies at Discharge: No Discharge Instructions Given to Patient (Per Discharging Provider) please hold aspirin for 5 days, and eliminate Motrin or ibuprofen from med list use Tylenol as first line agent for pain, then if no relief use oxycodone but be wary for constipation please have blood count checked on Thursday05/22/25 Total Time Total Time Spent Total Time Spent (In Minutes): It required greater than 30 minutes to prepare this patient for discharge. Coding Level of Care Code 70650 INP/OBS DISCH >30 MIN Diagnoses Anemia D64.9 Type 2 diabetes mellitus E11.9 Hyperlipidemia E78.5 Prostate cancer metastatic to bone C61; C79.51 NSVT (nonsustained ventricular tachycardia) I47.29
[2025-05-20] MEDS ORDERED: TAMSULOSIN HCL 0.4 MG CAP PO SCH (21:00)
[2025-05-20] MEDS ORDERED: PRAVASTATIN SOD 40 MG TAB PO SCH (21:00)
--- NOTE | 2025-05-21 13:29 | Electrocardiogram Report ---
Test Reason : Blood Pressure : */* mmHG Vent. Rate : 103 BPM Atrial Rate : 103 BPM P-R Int : 152 ms QRS Dur : 84 ms QT Int : 328 ms P-R-T Axes : 74 -21 46 degrees QTcB Int : 429 ms Sinus tachycardia with frequent , and consecutive Premature ventricular complexes Septal infarct , age undetermined Abnormal ECG When compared with ECG of 07-Mar-2025 13:49, Septal infarct is now Present QT has shortened Confirmed by Ezequiel Delacruz ([id number]) on 05/21/2025 1:29:21 PM Referred By: Amita leyva [facility] Confirmed By: Ezequiel Delacruz
== END 2025-05-20 15:58 | disposition home or self-care (01) ==
LOC: SUATTDRO → ED 23:15 → 2S 23:15